=== PATIENT | male | born 1935 | race Caucasian/White ===

== ENCOUNTER 2016-08-28 13:41 | Inpatient (IN) ==
[2016-08-28] MEDS ORDERED: ZALEPLON 5 MG CAPSULE PO PRN (14:56)
[2016-08-28] MEDS ORDERED: DOCUSATE SODIUM 100 MG CAPSULE PO PRN (14:56)
[2016-08-28] MEDS ORDERED: MAGNESIUM SULF RIDER 4 GM in PREMIX 1 EACH IV PRN (14:56)
[2016-08-28] MEDS ORDERED: ONDANSETRON 4 MG/2 ML VIAL IV PRN (14:56)
[2016-08-28] MEDS ORDERED: MAGNESIUM SULF RIDER 2 GM in PREMIX 1 EACH IV PRN (14:56)
[2016-08-28] MEDS ORDERED: ACETAMINOPHEN 325 MG TABLET PO PRN (14:56)
[2016-08-28] MEDS ORDERED: BISACODYL 5 MG TABLET PO PRN (14:56)
--- NOTE | 2016-08-28 18:59 | XRay Report ---
XR chest 1V portable Indication: Shortness of breath. Chest one view: Comparison 04/10/2016. Worsening pulmonary vascular congestion is present with increased prominence of the hilar regions. Hazy obscuration of the lung bases is noted as well, likely atelectasis. Heart size is upper limits normal and a pacemaker is again shown. Aortic tortuosity is stable. Impression: CHF with pulmonary edema as described. Bibasilar atelectasis. PROCEDURE INTERPRETED AT [facility] DEPARTMENT OF RADIOLOGY Final Report Signed by: Good John M.D.
[2016-08-28 19:03] LABS: Basophils % 0.4 % (0.0-0.8); Eosinophils % 0.5 % (0.00-10.9); Hematocrit 36.4 VOL% (42.0-52.0); Hemoglobin 11.6 GM/DL (14.0-18.0); Immature Granulocytes % 0.9 %; Immature Granulocytes Absolute 0.07 #; Lymphocytes # 1.3 10*3/uL (1.4-4.0); Lymphocytes % 17.7 % (21.2-54.2); Mean Corpuscular HGB Conc 31.9 GM/DL (32-36); Mean Corpuscular Hemoglobin 27 PG (27-34); Mean Corpuscular Volume 84.8 FL (87-102); Mean Platelet Volume 9.8 FL (9.6-12.0); Monocytes # 0.6 10*3/uL (0.11-0.8); Monocytes % 7.7 % (1.7-12.7); Neutrophils # 5.5 10*3/uL (1.4-7.4); Neutrophils % 72.8 % (38.7-73.9); Platelet Count 248 T/CUMM (130-400); Red Blood Count 4.29 MC/CUMM (3.8-5.5); Red Cell Distribution Width 15.3 % (9.3-17.3); White Blood Count 7.5 T/CUMM (4-12)
--- NOTE | 2016-08-28 19:15 | Cardiology History & Physical ---
Assessment and Plan (1) Diastolic dysfunction Status: Acute Assessment and plan: 81-year-old man, presenting with volume overload, CHF exacerbation. Known mild mitral and aortic stenosis, dual-chamber pacemaker for complete heart block, nonobstructive CAD, hypertension, debility, BPH, OA, obesity. -He responded well to diuretics at [facility], [place], [facility]. Follow-up labs, he is still volume overloaded. We will continue diuresis with IV Lasix as allowed by renal function and blood pressure. He is adequately perfused on exam. -Repeat echo. 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 -Will need to readdress the severity of the valvular disease this was mild to moderate last year, but he had worsening CHF symptoms recently. -Interrogate pacemaker. He had ectopic atrial rhythm, and atrial pacing, with suspected very low AF burden in the past. He was not anticoagulated. -The Alberto was discontinued earlier, which he wore for several months. History of severe BPH. Monitor urine output closely. -I doubt pneumonia. Monitor closely for sepsis -DVT ppx Current Visit: No (2) Obesity (BMI 30.0-34.9) Status: Acute Current Visit: No (3) Acute on chronic diastolic CHF (congestive heart failure) Status: Chronic Current Visit: No (4) Aortic stenosis Status: Chronic Current Visit: No Qualifiers: Cardiac valve disease etiology: nonrheumatic Qualified Code(s): I35.0 - Nonrheumatic aortic (valve) stenosis (5) Benign prostatic hypertrophy with urinary retention Status: Chronic Current Visit: No (6) Chronic renal disease Status: Chronic Current Visit: No Qualifiers: Chronic kidney disease stage: stage 1 Qualified Code(s): N18.1 - Chronic kidney disease, stage 1 (7) Hypertension Status: Chronic Current Visit: No Qualifiers: Hypertension type: essential hypertension (8) Orthostatic hypotension Status: Chronic Current Visit: No (9) Pacemaker Status: Chronic Current Visit: No (10) Pseudomonas urinary tract infection Status: Chronic Current Visit: No (11) Shortness of breath Status: Chronic Current Visit: No (12) Third degree AV block Status: Chronic Current Visit: No History of Present Illness Chief complaint: CHF, SOB History of present illness: Mr. Aguilar is a 81 year old male, followed by dr. Coello. He actually sees the [facility] in [place], and had not seen Dr. Coello in a while. Follow-up was planned in September. He was hospitalized in March and April last year due to CHF. Echo at that time confirmed mild to moderate mitral stenosis, mild aortic stenosis, preserved left ventricular ejection fraction. Cardiology follow-up was planned , which was done not pursued. He also had a history of BPH, for Alberto for several months which was since removed. Per his , who is the main historian for his mildly demented , he is urinating fine since. He also has a dual-chamber pacemaker for complete heart block, and had episodes of slow atrial tachyarrhythmia in the past. There was no atrial fibrillation and he is not anticoagulated. He noticed progressive shortness of breath nocturnal dyspnea and lower extremity swelling for the past several weeks, was hospitalized at [facility] and per the 's request, he was transferred to us. There was also concern of pneumonia, but he denies any fever. He had cough which was mildly productive. Labs from [facility], [place], [facility] show normal cell count, creatinine 1.0, potassium 3.1. Elevated BNP, EKG shows atrial paced rhythm, with a bout of atrial rhythm, around 90 bpm, tracked to the ventricle. He was diuresed at [facility], [place], [facility] and he is already feeling better. Also has a history of musculoskeletal pain. BPH, hypertension, nonobstructive CAD. Home Medications Medication Instructions Recorded Confirmed Type Aspirin [Ecotrin] 81 mg PO DAILY 08/14/15 08/28/16 History Benzonatate 200 mg PO TID 08/14/15 08/28/16 History Tamsulosin [Flomax] 0.4 mg PO BID capsule 08/22/15 08/28/16 Rx Docusate Sodium 100 mg PO BID 03/28/16 08/28/16 History Dutasteride [Avodart] 0.5 mg PO QAM 03/28/16 08/28/16 History Furosemide Tab [Lasix Tab] 20 - 40 mg PO DAILY 03/28/16 08/28/16 History Hydrocodone/Acetaminophen 1 each PO Q4H PRN 03/28/16 08/28/16 History [Hydrocodon-Acetaminoph 7.5-325] Omeprazole Magnesium [Prilosec Otc] 20 mg PO BID 03/28/16 08/28/16 History Polyethylene Glycol Powder 17 gm PO DAILY PRN 03/28/16 08/28/16 History [Miralax] Tramadol HCl [Tramadol Tab] 50 mg PO TID PRN 03/28/16 08/28/16 History Zaleplon [Sonata] 10 mg PO BEDTIME 03/28/16 08/28/16 History Fludrocortisone [Florinef] 0.1 mg PO BID #60 tablet 04/14/16 08/28/16 Rx Metoprolol Tartrate Tab [Lopressor 25 mg PO BID #60 tablet 04/14/16 08/28/16 Rx Tab] guaiFENesin/DM LIQUID [Robitussin 10 ml PO Q6H PRN 04/14/16 08/28/16 History Dm] Clarithromycin [Biaxin] 500 mg PO BID 08/28/16 08/28/16 History Cyanocobalamin (Vitamin B-12) 1,000 mcg PO DAILY 08/28/16 08/28/16 History [Vitamin B-12] Folic Acid Tab 1 mg PO DAILY 08/28/16 08/28/16 History Sertraline [Zoloft] 50 mg PO DAILY 08/28/16 08/28/16 History Allergies Allergy/AdvReac Type Severity Reaction Status Date / Time ceftriaxone [From Rocephin] Allergy RASH Verified 08/14/15 03:08 ciprofloxacin [From Cipro] Allergy RASH Verified 08/14/15 03:08 clonazepam [From Klonopin] Allergy Hallucinati Verified 08/14/15 03:08 ng latex Allergy Verified 08/14/15 10:46 mirtazapine [From Remeron] Allergy RASH Verified 08/14/15 03:08 nitrofurantoin AdvReac Severe SHORTNESS Verified 03/29/16 06:22 [From Macrobid] OF BREATH lorazepam [From Ativan] AdvReac Irritable Verified 08/14/15 03:08 sulfamethoxazole AdvReac RASH Verified 03/29/16 09:58 [From Bactrim] trimethoprim [From Bactrim] AdvReac RASH Verified 03/29/16 09:58 Zolpidem [From Ambien] AdvReac Irritable Verified 08/14/15 03:08 ROS unobtainable: due to dementia 12 point system: reviewed and no additional remarkable complaints except as stated Medical,Surgical,& Family Hx - Medical History Cardio: History of: Cardiac Dysrhythmia, CHF, CAD, Hypertension, Pacemaker (2011 ), Cardiovascular Problems (CAD) No history of: Cerebrovascular Disease, Congenital Heart Disease, PVD, Valvular Heart Disease Psychological: No history of: Anxiety Disorders, ADHD, Behavior Problems, Bipolar Disorder, Depression, Previous Suicide Attempt, Psychiatric/Substance Abuse Tx, Schizophrenia, Violent Behavior, Psychiatric Problems HEENT: History of: Eye Problem No history of: Dental Problems (implants), Glaucoma, Oral Cancer Comment Only: Ear Problem (yurok), HEENT Problems (reports trouble swallowing x week ( per )) Endocrine: No history of: Dyslipidemia, Thyroid Disorder, Endocrine Cancer, Endocrine Problems Rheumatology: History of;: Rheumatological Problems (osteoarthrits knees) No history of;: Fibromyalgia, Myasthenia Gravis, Rheumatoid Arthritis, Systemic Lupus Erythematosus Respiratory: History of: Obstructive Sleep Apnea, Respiratory Problems ( reported that pt gets sob @ home but no hx copd, emphsema) Renal: History of: Renal Failure, Renal Problems No history of: Renal (Kidney) Cancer, Dialysis Genitourinary: History of: Bladder Problem, Prostate Problems, Recurring Urinary Tract Infections, Problems (hx nephritis @ 17 yrs old) No history of: Kidney Stones, Genitourinary Cancer Gastrointestinal: History of: GERD, GI Problems No history of: Gastrointestinal Bleed, Hemorrhoids, Hematochezia, Hepatitis, Liver Problems, Pancreatitis, Polyps, Ulcerative Colitis, Gastrointestinal Cancer Musculoskeletal: History of: Back/Neck Problems, Musculoskeletal Problems No history of: Degenerative Disk Disease, Herniated Disk, Osteoporosis, Musculoskeletal Cancer Hematology: No history of: Anemia, Blood Transfusion Reaction, Bleeding Problems, Clotting Problems, Sickle Cell Disease, Hematologic Cancer, Blood Disorders Other: History of: Miscellaneous Medical Problems No history of: Anesthesia Reactions, Anaphylaxis, Cancer, HIV, Malignant Hyperthermia, MRSA, Skin Problems - Surgical History Cardiac Surgeries: Sugical HX of: Cardiac Catheterization (2010), Cardiac Surgery (Pacemaker) Patient Denies: Femoral-Popliteal Bypass Graft, Carotid Endarterectomy, Internal Defibrillator, Vascular Access Devices Thoracic Surgeries: Patient denies;: Kidney (Renal Surgery), Lithotripsy, Nephrectomy, Organ Transplant, Lobectomy Neurologic Surgeries: Patient denies: Neurologic Surgery HEENT Surgeries: Surgical HX of: Tonsilectomy & Adenoidectomy Patient denies: Carotid Endarterectomy, Eye Surgery, Thyroid Surgery Abdominal Surgeries: Patient denies: Abdominal Surgery, Appendectomy, Cholecystectomy, Colonoscopy , Gastric Bypass Surgery, EGD, Splenectomy Comment Only: Hernia Repair (has hiatal hernia) Reproductive Surgeries: Surgical HX of;: Cystoscopy Patient denies;: Genitourinary Surgery, Prostate Surgery Orthopedic Surgeries: Surgical HX of;: Implanted Devices, Orthopedic Surgery ( collar bone) - Family History Family History: Reports;: Family Hypertension Denies;: Family Anesthesia Reaction, Family Stroke - Social History Smoking Status: Never smoker Frequency of Alcohol Use: None Type of Drug Use: None Cardiology Physical Exam - Constitutional Vitals: Vital Signs Temp Pulse Resp BP Pulse Ox 98.4 F 58 L 20 149/79 93 L 08/28/16 17:51 08/28/16 17:51 08/28/16 18:00 08/28/16 17:51 08/28/16 17:51 Intake and Output 08/28/16 08/28/16 08/28/16 07:59 15:59 23:59 Other: Weight 106.549 kg Patient Weight 08/28/16 23:59 Weight 106.549 kg General appearance: over weight - Head Head exam: Present: normal inspection, normocephalic. Absent: hematoma - Eye Eye exam: Absent: conjunctival injection Pupils: Absent: dilated - ENT ENT exam: Present: normal external ear exam - Neck Neck exam: Present: normal inspection, other (elev jvp) - Respiratory Respiratory exam: Present: decreased breath sounds. Absent: accessory muscle use, prolonged expiratory phase, wheezes - Cardiovascular Cardiovascular exam: Present: regular rate and rhythm, systolic murmur - GI/Abdominal GI/Abdominal exam: Present: normal bowel sounds. Absent: distended - Extremities Exam Extremities exam: Present: normal inspection, normal capillary refill, edema (2+ ) - Back Exam Back exam: Present: normal inspection - Neurological Exam Neurological exam: Present: alert, other ([place]) - Psychiatric Psychiatric exam: Present: normal affect, normal mood - Skin Skin exam: Present: normal color, warm. Absent: cyanosis Result/EKG - Labs CBC & BMP: 08/28/16 18:55 Lab Results: I have reviewed the past 24 hour labs Labs: Laboratory Results - last 24 hr 08/28/16 18:55 WBC 7.5 RBC 4.29 Hgb 11.6 L Hct 36.4 L MCV 84.8 L MCH 27 MCHC 31.9 L RDW 15.3 Plt Count 248 MPV 9.8 Neut % (Auto) 72.8 Lymph % (Auto) 17.7 L [place] % (Auto) 7.7 Eos % (Auto) 0.5 Baso % (Auto) 0.4 Neut # (Auto) 5.5 Lymph # (Auto) 1.3 L [place] # (Auto) 0.6 Eos # (Auto) 0.0 Baso # (Auto) 0.0 Immature Gran % 0.9 Nucleated RBC % 0.0 Immature Gran # 0.07 Nucleated RBCs # 0.00 - EKG EKG results: interpreted by me
[2016-08-28 19:36] LABS: Calcium 8.1 MG/DL (8.5-10.1); Magnesium 1.8 MG/DL (1.8-2.4); Osmolality,Calculated 283.3 MOS/KG (273-304); Potassium 2.8 MMOL/L (3.5-5.1)
[2016-08-28 19:39] LABS: Troponin I Only 0.025 NG/ML (0.00-0.045)
[2016-08-28] MEDS ORDERED: POTASSIUM CHLORIDE 20 MEQ TABLET PO ONE (19:45)
[2016-08-28] MEDS ORDERED: POLYETHYLENE GLYCOL POWDER 17 GM PACK PO PRN (19:46)
[2016-08-28] MEDS ORDERED: traMADol 50 MG TABLET PO PRN (19:46)
[2016-08-28] MEDS ORDERED: NON-FORMULARY MEDICATION (Omeprazole Magnesium [Prilosec Otc] 20 MG) PO SCH (21:00)
[2016-08-28] MEDS: BENZONATATE 100 MG CAPSULE PO SCH (21:20)
[2016-08-28] MEDS: TAMSULOSIN 0.4 MG CAPSULE PO SCH (21:21)
[2016-08-28] MEDS: MAGNESIUM OXIDE 400 MG TABLET PO SCH (21:21)
[2016-08-28] MEDS: FLUDROCORTISONE 0.1 MG TABLET PO SCH (21:21)
[2016-08-28] MEDS: METOPROLOL TARTRATE 25 MG TABLET PO SCH (21:21)
[2016-08-28] MEDS: ENOXAPARIN 30 MG/0.3 ML SYRINGE SUBCUT SCH (21:23)
[2016-08-28] MEDS: DOCUSATE SODIUM 100 MG CAPSULE PO SCH (21:27)
[2016-08-28] MEDS: ZALEPLON 5 MG CAPSULE PO SCH (21:27)
[2016-08-29 00:07] LABS: Troponin I Only 0.036 NG/ML (0.00-0.045)
[2016-08-29 04:27] LABS: Basophils % 0.6 % (0.0-0.8); Eosinophils # 0.1 10*3/uL (0.0-0.87); Eosinophils % 0.9 % (0.00-10.9); Hematocrit 33.4 VOL% (42.0-52.0); Hemoglobin 10.8 GM/DL (14.0-18.0); Immature Granulocytes % 1.1 %; Immature Granulocytes Absolute 0.06 #; Lymphocytes # 1.5 10*3/uL (1.4-4.0); Lymphocytes % 28.1 % (21.2-54.2); Mean Corpuscular HGB Conc 32.3 GM/DL (32-36); Mean Corpuscular Hemoglobin 27 PG (27-34); Mean Corpuscular Volume 84.3 FL (87-102); Mean Platelet Volume 10.2 FL (9.6-12.0); Monocytes # 0.6 10*3/uL (0.11-0.8); Monocytes % 10.6 % (1.7-12.7); Neutrophils # 3.1 10*3/uL (1.4-7.4); Neutrophils % 58.7 % (38.7-73.9); Platelet Count 248 T/CUMM (130-400); Red Blood Count 3.96 MC/CUMM (3.8-5.5); Red Cell Distribution Width 15.4 % (9.3-17.3); White Blood Count 5.3 T/CUMM (4-12)
[2016-08-29 05:00] LABS: % Iron Saturation 15.8 % (18-50)
[2016-08-29 05:08] LABS: Folate > 24.0 NG/ML (5.4-24.0); Vitamin B12 738 PG/ML (211-911)
--- NOTE | 2016-08-29 07:46 | XRay Report ---
XR chest 1V portable Indication: Shortness of breath. Chest one view: Since yesterday, slight decrease in interstitial prominence of the lungs noted with improved delineation of the diaphragm bilaterally. No new infiltrates are shown. Mild cardiomegaly and pacemaker device appears stable. Impression: Improved aeration of the lungs, likely from improved fluid overload. PROCEDURE INTERPRETED AT [facility] DEPARTMENT OF RADIOLOGY Final Report Signed by: Good John M.D.
--- NOTE | 2016-08-29 08:06 | EKG Report ---
Stationary ECG Study [facility] Test Date: 08/29/2016 8:06:24 AM Pat Name: MICHI SCOTT Department: Room: 289 Gender: M Hotel Maintenance Engineer: ARISTIDES : 1935 Requested by: Katia Villatoro Order Number: [id number] Saima MD: BETTYE FRAGA Intervals [place] Rate: 78 P: 83 NE: 218 QRS: 270 QRSD: 162 T: 73 QT: 477 QTc: 510 Interpretive Statements ELECTRONIC VENTRICULAR PACEMAKER ATRIAL PACING Electronically Signed On 08-31-16 16:31:18 CDT by BETTYE FRAGA [email or web address]
[2016-08-29 08:12] LABS: Troponin I Only 0.042 NG/ML (0.00-0.045)
[2016-08-29] MEDS: FUROSEMIDE 40 MG/4 ML VIAL IV SCH ×2 (09:15→15:36)
[2016-08-29] MEDS: BENZONATATE 100 MG CAPSULE PO SCH ×3 (09:16→21:44)
[2016-08-29] MEDS: FLUDROCORTISONE 0.1 MG TABLET PO SCH ×2 (09:16→21:44)
[2016-08-29] MEDS: CYANOCOBALAMIN 500 MCG TABLET PO SCH (09:16)
[2016-08-29] MEDS: MAGNESIUM OXIDE 400 MG TABLET PO SCH ×2 (09:16→21:42)
[2016-08-29] MEDS: FOLIC ACID 1 MG TABLET PO SCH (09:17)
[2016-08-29] MEDS: DUTASTERIDE 0.5 MG CAPSULE PO SCH (09:17)
[2016-08-29] MEDS: SERTRALINE 50 MG TABLET PO SCH (09:17)
[2016-08-29] MEDS: METOPROLOL TARTRATE 25 MG TABLET PO SCH ×2 (09:17→21:44)
[2016-08-29] MEDS: ASPIRIN EC 81 MG TABLET PO SCH (09:17)
[2016-08-29] MEDS: DOCUSATE SODIUM 100 MG CAPSULE PO SCH ×2 (09:17→21:44)
[2016-08-29] MEDS: TAMSULOSIN 0.4 MG CAPSULE PO SCH ×2 (09:17→21:42)
[2016-08-29] MEDS: POTASSIUM CHLORIDE 20 MEQ TABLET PO SCH ×2 (09:17→21:42)
[2016-08-29] MEDS: PANTOPRAZOLE 40 MG TABLET PO SCH (09:18)
[2016-08-29 12:50] LABS: Calcium 8.4 MG/DL (8.5-10.1); Magnesium 1.8 MG/DL (1.8-2.4); Osmolality,Calculated 284.1 MOS/KG (273-304)
--- NOTE | 2016-08-29 12:54 | ECHO Report ---
Solo Aguilar Exam Date: 08/29/2016 08:57 Referring Physician: Technologist: Bernice Hobson RDCS Age: 81 Ht (in): 73 Wt (lb): 234 Gender: M Exam Location: [facility] Echo Indications: Acute on chronic diastolic (congestive) heart failure, Chronic kidney disease, stage 1, Shortness of breath, Essential (primary) hypertension, Presence of cardiac pacemaker, CAD, Volume overload BP: 128 / 80 HR: 92 Rhythm: Pacemaker Technical Quality: IMPRESSIONS Normal left ventricular cavity size. Mild concentric hypertrophy. Left ventricular ejection fraction is estimated at 60 %. Moderately dilated right ventricle, with normal systolic function. Moderate pulmonary hypertension. Severe right atrial and moderate left atrial enlargement. Mitral valve sclerosis, with mild stenosis, mild regurgitation. Aortic valve sclerosis, with mild stenosis, without insufficiency. Compared to the prior transthoracic study from March 2016, no significant change in the severity of valvular disease. The pulmonary pressure was 36 mmHg then. MEASUREMENTS (Male / Female) Normal Values 2D ECHO LV Diastolic Diameter PLAX 3.7 cm 4.2 - 5.9 / 3.9 - 5.3 cm LV Systolic Diameter PLAX 2.3 cm LV Fractional Shortening PLAX 37.1 % IVS Diastolic Thickness 1.0 cm 0.6 - 1.0 / 0.6 - 0.9 cm LVPW Diastolic Thickness 1.0 cm 0.6 - 1.0 / 0.6 - 0.9 cm RV Internal Dim ED PLAX 3.8 cm Aortic Root Diameter 3.5 cm LA Systolic Diameter LX 5.4 cm 3.0 - 4.0 / 2.7 - 3.8 cm DOPPLER TR Peak Velocity 347.0 cm/s TR Peak Gradient 48.2 mmHg FINDINGS Left Ventricle Normal left ventricular cavity size. Mild concentric hypertrophy. Left ventricular ejection fraction is estimated at 60 %. Unable to estimate diastolic function due to severity of the velvular disease. Right Ventricle Moderately dilated right ventricle, with normal systolic function. Pacemaker wire visualized in the right ventricle. Right Atrium Severely increased right atrial size. Pacemaker wire in the right atrial cavity. Left Atrium Moderately increased left atrial size. Mitral Valve Severely sclerotic mitral valve. Diastolic gradient peak 9, mean 4 mmHg. Pressure half time 113 ms, calculated valve area 1.9 cm. Mild mitral regurgitation. Aortic Valve Sclerotic aortic valve, with systolic gradient of peak 77, mean 19 mmHg. Calculated valve area 1.3 cm. No insufficiency. Tricuspid Valve Morphologically normal tricuspid valve. Moderate tricuspid valve regurgitation. Tricuspid regurgitation velocities suggest a PAP of 58 mmHg. Pulmonic Valve Morphologically normal pulmonic valve without significant stenosis. There is no pulmonic regurgitation. Pericardium Normal pericardium without effusion. Aorta Normal ascending aorta dimension. Shane Muller (Electronically Signed) Final Date: 29 August 2016 12:53
--- NOTE | 2016-08-29 13:00 | Cardiology Progress Note ---
Assessment and Plan (1) Diastolic dysfunction Status: Acute Assessment and plan: 81-year-old man, presenting with volume overload, CHF exacerbation. Known mild mitral and aortic stenosis, dual-chamber pacemaker for complete heart block, nonobstructive CAD, hypertension, debility, BPH, OA, obesity. -Follow-up electrolytes. He was hypokalemic after he was diuresed vigorously at [facility], getting repletion. Confirmed with the physical laboratory assistant, the blood was drawn and they are still processing it, it is delayed for several hours now. -Continue IV Lasix, electrolyte repletion. -He is volume overloaded, echo shows stable, mild mitral and aortic valve disease. Pulmonary hypertension. -Intermittent atrial undersensing, arrhythmia may have contributed to heart failure exacerbation. DDD PM. The atrial signal is very low but there seems to be adequate sensing at 0.15 mV, the lowest setting. Continue to monitor telemetry. Arrhythmia, device dysfunction may have contributed to CHF exacerbation. -Anemia, iron deficiency. Start iron supplementation, vitamins, check stool guaiacs. He will need GI evaluation. He has valvular heart disease, at risk for AVMs. -The Alberto was discontinued earlier, which he wore for several months. History of severe BPH. Monitor urine output closely. He is using urinal. -DVT ppx -Keep on telemetry Current Visit: No (2) Obesity (BMI 30.0-34.9) Status: Acute Current Visit: No (3) Acute on chronic diastolic CHF (congestive heart failure) Status: Chronic Current Visit: No (4) Aortic stenosis Status: Chronic Current Visit: No Qualifiers: Cardiac valve disease etiology: nonrheumatic Qualified Code(s): I35.0 - Nonrheumatic aortic (valve) stenosis (5) Benign prostatic hypertrophy with urinary retention Status: Chronic Current Visit: No (6) Chronic renal disease Status: Chronic Current Visit: No Qualifiers: Chronic kidney disease stage: stage 1 Qualified Code(s): N18.1 - Chronic kidney disease, stage 1 (7) Hypertension Status: Chronic Current Visit: No Qualifiers: Hypertension type: essential hypertension (8) Orthostatic hypotension Status: Chronic Current Visit: No (9) Pacemaker Status: Chronic Current Visit: No (10) Pseudomonas urinary tract infection Status: Chronic Current Visit: No (11) Shortness of breath Status: Chronic Current Visit: No (12) Third degree AV block Status: Chronic Current Visit: No Cardiology - PN: Subj Interval history: He is feeling slightly better. BMP/magnesium from this morning is not available. I confirmed with the lab, it was drawn and is pending. Pacemaker interrogation shows atrial undersensing. Exam (Progress Note) - Constitutional Vitals: Period Temp Pulse Resp BP Sys/Martinez Pulse Ox Last 24 Hr 98 F-98.4 F 58-75 18-22 114-149/62-80 90-96 General appearance: no acute distress, over weight - Head Head exam: Present: normal inspection - Eye Eye exam: Absent: conjunctival injection Pupils: Absent: dilated - ENT ENT exam: Present: normal external ear exam - Neck Neck exam: Present: normal inspection, other (Elevated JVP.) - Respiratory Respiratory exam: Present: decreased breath sounds. Absent: prolonged expiratory phase - Cardiovascular Cardiovascular exam: Present: diastolic murmur, irregular rhythm, systolic murmur - GI/Abdominal GI/Abdominal exam: Present: normal bowel sounds, distended. Absent: ascites, guarding - Extremities Exam Extremities exam: Present: normal inspection, normal capillary refill, edema (2+ ) - Neurological Exam Neurological exam: Present: alert, oriented X3 - Psychiatric Psychiatric exam: Present: normal affect, normal mood - Skin Skin exam: Present: normal color, warm. Absent: cyanosis Result/EKG - Labs CBC & BMP: 08/29/16 03:43 08/29/16 03:42 Lab Results: I have reviewed the past 24 hour labs Labs: Laboratory Results - last 24 hr 08/28/16 08/28/16 08/28/16 18:55 18:55 18:55 WBC 7.5 RBC 4.29 Hgb 11.6 L Hct 36.4 L MCV 84.8 L MCH 27 MCHC 31.9 L RDW 15.3 Plt Count 248 MPV 9.8 Neut % (Auto) 72.8 Lymph % (Auto) 17.7 L [place] % (Auto) 7.7 Eos % (Auto) 0.5 Baso % (Auto) 0.4 Neut # (Auto) 5.5 Lymph # (Auto) 1.3 L [place] # (Auto) 0.6 Eos # (Auto) 0.0 Baso # (Auto) 0.0 Immature Gran % 0.9 Nucleated RBC % 0.0 Immature Gran # 0.07 Nucleated RBCs # 0.00 Absolute Retic Percent Retic Retic Hgb Equivalent Sodium 141 Potassium 2.8 L Chloride 96 L Carbon Dioxide 37 H Anion Gap 10.8 BUN 18 Creatinine 1.10 GFR Calculation 83 BUN/Creatinine Ratio 16.00 Glucose 119 H Calculated Osmolality 283.3 Calcium 8.1 L Magnesium 1.8 Iron TIBC % Saturation Ferritin Total Creatine Kinase CK-MB (CK-2) Troponin I B-Natriuretic Peptide 807 H Vitamin B12 Folate 08/28/16 08/28/16 08/29/16 18:55 23:22 03:42 WBC RBC Hgb Hct MCV MCH MCHC RDW Plt Count MPV Neut % (Auto) Lymph % (Auto) [place] % (Auto) Eos % (Auto) Baso % (Auto) Neut # (Auto) Lymph # (Auto) [place] # (Auto) Eos # (Auto) Baso # (Auto) Immature Gran % Nucleated RBC % Immature Gran # Nucleated RBCs # Absolute Retic Percent Retic Retic Hgb Equivalent Sodium 142 Potassium 3.0 L Chloride 98 Carbon Dioxide 38 H Anion Gap 9.0 BUN 18 Creatinine 1.10 GFR Calculation 83 BUN/Creatinine Ratio 16.00 Glucose 92 Calculated Osmolality 284.1 Calcium 8.4 L Magnesium 1.8 Iron TIBC % Saturation Ferritin Total Creatine Kinase 95 87 CK-MB (CK-2) < 1.0 < 1.0 Troponin I 0.025 0.036 B-Natriuretic Peptide Vitamin B12 Folate 08/29/16 08/29/16 08/29/16 03:43 03:43 03:43 WBC 5.3 RBC 3.96 Hgb 10.8 L Hct 33.4 L MCV 84.3 L MCH 27 MCHC 32.3 RDW 15.4 Plt Count 248 MPV 10.2 Neut % (Auto) 58.7 Lymph % (Auto) 28.1 [place] % (Auto) 10.6 Eos % (Auto) 0.9 Baso % (Auto) 0.6 Neut # (Auto) 3.1 Lymph # (Auto) 1.5 [place] # (Auto) 0.6 Eos # (Auto) 0.1 Baso # (Auto) 0.0 Immature Gran % 1.1 Nucleated RBC % 0.0 Immature Gran # 0.06 Nucleated RBCs # 0.00 Absolute Retic 0.1 Percent Retic 2.0 H Retic Hgb Equivalent 32.1 Sodium Potassium Chloride Carbon Dioxide Anion Gap BUN Creatinine GFR Calculation BUN/Creatinine Ratio Glucose Calculated Osmolality Calcium Magnesium Iron TIBC % Saturation Ferritin Total Creatine Kinase CK-MB (CK-2) Troponin I B-Natriuretic Peptide 904 H Vitamin B12 Folate 08/29/16 08/29/16 08/29/16 03:43 03:43 07:26 WBC RBC Hgb Hct MCV MCH MCHC RDW Plt Count MPV Neut % (Auto) Lymph % (Auto) [place] % (Auto) Eos % (Auto) Baso % (Auto) Neut # (Auto) Lymph # (Auto) [place] # (Auto) Eos # (Auto) Baso # (Auto) Immature Gran % Nucleated RBC % Immature Gran # Nucleated RBCs # Absolute Retic Percent Retic Retic Hgb Equivalent Sodium Potassium Chloride Carbon Dioxide Anion Gap BUN Creatinine GFR Calculation BUN/Creatinine Ratio Glucose Calculated Osmolality Calcium Magnesium Iron 36 L TIBC 228 L % Saturation 15.8 L Ferritin 695.0 H Total Creatine Kinase 68 D CK-MB (CK-2) < 1.0 Troponin I 0.042 B-Natriuretic Peptide Vitamin B12 738 Folate > 24.0 H - EKG EKG results: interpreted by me
[2016-08-29] MEDS: FERROUS SULFATE 325 MG TABLET PO SCH ×2 (15:36→21:44)
[2016-08-29] MEDS: ZALEPLON 5 MG CAPSULE PO SCH (21:45)
[2016-08-29] MEDS: ENOXAPARIN 30 MG/0.3 ML SYRINGE SUBCUT SCH (21:52)
[2016-08-30 05:04] LABS: Basophils % 0.7 % (0.0-0.8); Eosinophils # 0.1 10*3/uL (0.0-0.87); Eosinophils % 1.1 % (0.00-10.9); Hemoglobin 10.6 GM/DL (14.0-18.0); Immature Granulocytes % 0.7 %; Immature Granulocytes Absolute 0.04 #; Lymphocytes # 1.9 10*3/uL (1.4-4.0); Lymphocytes % 31.2 % (21.2-54.2); Mean Corpuscular HGB Conc 32.1 GM/DL (32-36); Mean Corpuscular Hemoglobin 27 PG (27-34); Mean Corpuscular Volume 84.6 FL (87-102); Mean Platelet Volume 9.7 FL (9.6-12.0); Monocytes # 0.6 10*3/uL (0.11-0.8); Monocytes % 9.3 % (1.7-12.7); Neutrophils # 3.5 10*3/uL (1.4-7.4); Platelet Count 223 T/CUMM (130-400); Red Cell Distribution Width 15.5 % (9.3-17.3); White Blood Count 6.2 T/CUMM (4-12)
[2016-08-30 05:38] LABS: Calcium 8.4 MG/DL (8.5-10.1); Magnesium 1.9 MG/DL (1.8-2.4); Osmolality,Calculated 283.3 MOS/KG (273-304); Potassium 3.5 MMOL/L (3.5-5.1)
[2016-08-30] MEDS: FUROSEMIDE 40 MG/4 ML VIAL IV SCH ×2 (09:27→16:14)
[2016-08-30] MEDS: ASPIRIN EC 81 MG TABLET PO SCH (09:34)
[2016-08-30] MEDS: MAGNESIUM OXIDE 400 MG TABLET PO SCH ×2 (09:34→21:10)
[2016-08-30] MEDS: FERROUS SULFATE 325 MG TABLET PO SCH ×3 (09:34→21:09)
[2016-08-30] MEDS: DUTASTERIDE 0.5 MG CAPSULE PO SCH (09:34)
[2016-08-30] MEDS: BENZONATATE 100 MG CAPSULE PO SCH ×3 (09:34→21:10)
[2016-08-30] MEDS: POTASSIUM CHLORIDE 20 MEQ TABLET PO SCH ×2 (09:35→21:10)
[2016-08-30] MEDS: CYANOCOBALAMIN 500 MCG TABLET PO SCH (09:35)
[2016-08-30] MEDS: PANTOPRAZOLE 40 MG TABLET PO SCH (09:35)
[2016-08-30] MEDS: FLUDROCORTISONE 0.1 MG TABLET PO SCH ×2 (09:35→21:09)
[2016-08-30] MEDS: DOCUSATE SODIUM 100 MG CAPSULE PO SCH ×2 (09:35→21:11)
[2016-08-30] MEDS: TAMSULOSIN 0.4 MG CAPSULE PO SCH ×2 (09:35→21:10)
[2016-08-30] MEDS: FOLIC ACID 1 MG TABLET PO SCH (09:35)
[2016-08-30] MEDS: METOPROLOL TARTRATE 25 MG TABLET PO SCH ×2 (09:35→21:10)
[2016-08-30] MEDS: SERTRALINE 50 MG TABLET PO SCH (09:36)
--- NOTE | 2016-08-30 13:18 | Cardiology Progress Note ---
Assessment and Plan (1) Diastolic dysfunction Status: Acute Assessment and plan: 81-year-old man, presenting with volume overload, CHF exacerbation. Known mild mitral and aortic stenosis, dual-chamber pacemaker for complete heart block, nonobstructive CAD, hypertension, debility, BPH, OA, obesity. -Continue IV Lasix today. Volume overload improving. May switch to p.o. tomorrow, if remains stable. -Continue electrolyte repletion. He was diuresed vigorously, before he was transferred to us. -Echo showed stable, mild mitral and aortic valve disease. Pulmonary hypertension. -Intermittent atrial undersensing, arrhythmia may have contributed to heart failure exacerbation. DDD PM. The atrial signal is very low but there seems to be adequate sensing at 0.15 mV, the lowest setting. Continue to monitor telemetry. Arrhythmia, device dysfunction may have contributed to CHF exacerbation. -Anemia, iron deficiency. Cont iron supplementation, vitamins, check stool guaiacs. He will need GI evaluation. He has valvular heart disease, at risk for AVMs. -The Alberto was discontinued earlier, which he wore for several months. History of severe BPH. Monitor urine output closely. He is using urinal. -DVT ppx - asked for transportation back to [facility], when stable. Will get social work -He will need regular cardiac follow-up. His bank messenger is dr. Coello. Patient has hard time with transportation. Current Visit: No (2) Obesity (BMI 30.0-34.9) Status: Acute Current Visit: No (3) Acute on chronic diastolic CHF (congestive heart failure) Status: Chronic Current Visit: No (4) Aortic stenosis Status: Chronic Current Visit: No Qualifiers: Cardiac valve disease etiology: nonrheumatic Qualified Code(s): I35.0 - Nonrheumatic aortic (valve) stenosis (5) Benign prostatic hypertrophy with urinary retention Status: Chronic Current Visit: No (6) Chronic renal disease Status: Chronic Current Visit: No Qualifiers: Chronic kidney disease stage: stage 1 Qualified Code(s): N18.1 - Chronic kidney disease, stage 1 (7) Hypertension Status: Chronic Current Visit: No Qualifiers: Hypertension type: essential hypertension (8) Orthostatic hypotension Status: Chronic Current Visit: No (9) Pacemaker Status: Chronic Current Visit: No (10) Pseudomonas urinary tract infection Status: Chronic Current Visit: No (11) Shortness of breath Status: Chronic Current Visit: No (12) Third degree AV block Status: Chronic Current Visit: No Cardiology - PN: Subj Interval history: He is feeling better. Diuresing well with IV Lasix. No recurrence of atrial undersensing, since pacer setting adjustment. Renal function stable. Valvular heart disease, unchanged since the prior echo Exam (Progress Note) - Constitutional Vitals: Period Temp Pulse Resp BP Sys/Martinez Pulse Ox Last 24 Hr 97.3 F-98.2 F 60-77 16-20 102-146/61-84 92-97 General appearance: normal weight, over weight - Head Head exam: Present: normal inspection, normocephalic - Eye Eye exam: Absent: conjunctival injection Pupils: Absent: dilated - ENT ENT exam: Present: normal external ear exam - Neck Neck exam: Present: normal inspection, other (Elevated JVP) - Respiratory Respiratory exam: Present: decreased breath sounds. Absent: prolonged expiratory phase, wheezes - Cardiovascular Cardiovascular exam: Present: diastolic murmur, regular rate and rhythm, systolic murmur - GI/Abdominal GI/Abdominal exam: Present: normal bowel sounds. Absent: ascites, distended - Extremities Exam Extremities exam: Present: normal inspection, normal capillary refill, edema (2+ ) - Neurological Exam Neurological exam: Present: alert, oriented X3 - Psychiatric Psychiatric exam: Present: normal affect, normal mood - Skin Skin exam: Present: normal color, warm. Absent: cyanosis Result/EKG - Labs CBC & BMP: 08/30/16 04:54 08/30/16 04:54 Lab Results: I have reviewed the past 24 hour labs Labs: Laboratory Results - last 24 hr 08/30/16 08/30/16 04:54 04:54 WBC 6.2 RBC 3.90 Hgb 10.6 L Hct 33.0 L MCV 84.6 L MCH 27 MCHC 32.1 RDW 15.5 Plt Count 223 MPV 9.7 Neut % (Auto) 57.0 Lymph % (Auto) 31.2 Garvin % (Auto) 9.3 Eos % (Auto) 1.1 Baso % (Auto) 0.7 Neut # (Auto) 3.5 Lymph # (Auto) 1.9 Garvin # (Auto) 0.6 Eos # (Auto) 0.1 Baso # (Auto) 0.0 Immature Gran % 0.7 Nucleated RBC % 0.0 Immature Gran # 0.04 Nucleated RBCs # 0.00 Sodium 141 Potassium 3.5 Chloride 97 L Carbon Dioxide 37 H Anion Gap 10.5 BUN 20 H Creatinine 1.10 GFR Calculation 83 BUN/Creatinine Ratio 18.00 Glucose 93 Calculated Osmolality 283.3 Calcium 8.4 L Magnesium 1.9 - EKG EKG results: interpreted by me
[2016-08-30] MEDS: ZALEPLON 5 MG CAPSULE PO SCH (21:11)
[2016-08-30] MEDS: ENOXAPARIN 40 MG/0.4 ML SYRINGE SUBCUT SCH (21:11)
[2016-08-31 04:47] LABS: Basophils % 0.6 % (0.0-0.8); Eosinophils # 0.1 10*3/uL (0.0-0.87); Eosinophils % 1.3 % (0.00-10.9); Hematocrit 33.3 VOL% (42.0-52.0); Hemoglobin 10.7 GM/DL (14.0-18.0); Immature Granulocytes % 0.5 %; Immature Granulocytes Absolute 0.03 #; Lymphocytes # 1.8 10*3/uL (1.4-4.0); Lymphocytes % 28.7 % (21.2-54.2); Mean Corpuscular HGB Conc 32.1 GM/DL (32-36); Mean Corpuscular Hemoglobin 27 PG (27-34); Mean Corpuscular Volume 84.5 FL (87-102); Monocytes # 0.7 10*3/uL (0.11-0.8); Monocytes % 10.5 % (1.7-12.7); Neutrophils # 3.6 10*3/uL (1.4-7.4); Neutrophils % 58.4 % (38.7-73.9); Platelet Count 234 T/CUMM (130-400); Red Blood Count 3.94 MC/CUMM (3.8-5.5); Red Cell Distribution Width 15.2 % (9.3-17.3); White Blood Count 6.2 T/CUMM (4-12)
[2016-08-31 05:10] LABS: Calcium 8.2 MG/DL (8.5-10.1); Osmolality,Calculated 281.4 MOS/KG (273-304); Potassium 3.8 MMOL/L (3.5-5.1)
[2016-08-31] MEDS: CYANOCOBALAMIN 500 MCG TABLET PO SCH (09:29)
[2016-08-31] MEDS: DUTASTERIDE 0.5 MG CAPSULE PO SCH (09:29)
[2016-08-31] MEDS: FOLIC ACID 1 MG TABLET PO SCH (09:29)
[2016-08-31] MEDS: ASPIRIN EC 81 MG TABLET PO SCH (09:29)
[2016-08-31] MEDS: FLUDROCORTISONE 0.1 MG TABLET PO SCH ×2 (09:29→21:31)
[2016-08-31] MEDS: FERROUS SULFATE 325 MG TABLET PO SCH ×3 (09:29→21:31)
[2016-08-31] MEDS: PANTOPRAZOLE 40 MG TABLET PO SCH (09:30)
[2016-08-31] MEDS: TAMSULOSIN 0.4 MG CAPSULE PO SCH ×2 (09:30→21:32)
[2016-08-31] MEDS: BENZONATATE 100 MG CAPSULE PO SCH ×3 (09:30→21:30)
[2016-08-31] MEDS: SERTRALINE 50 MG TABLET PO SCH (09:30)
[2016-08-31] MEDS: METOPROLOL TARTRATE 25 MG TABLET PO SCH (09:30)
[2016-08-31] MEDS: MAGNESIUM OXIDE 400 MG TABLET PO SCH ×2 (09:30→21:31)
[2016-08-31] MEDS: DOCUSATE SODIUM 100 MG CAPSULE PO SCH ×2 (09:30→21:54)
[2016-08-31] MEDS: POTASSIUM CHLORIDE 20 MEQ TABLET PO SCH ×2 (09:30→21:31)
[2016-08-31] MEDS ORDERED: FUROSEMIDE 40 MG TABLET PO SCH (10:23)
[2016-08-31] MEDS: FUROSEMIDE 40 MG/4 ML VIAL IV SCH (11:07)
--- NOTE | 2016-08-31 14:14 | Cardiology Progress Note ---
Cardiology - PN: Subj Interval history: Cardiology note 81-year-old man admitted with CHF [place] [facility] with several medical problems including pneumonia, heart failure, debilitating osteoarthritis with inability to walk and weakness. Has history of BPH and takes Flomax. They missed their appointment Dr. David Steiner and want to see Dr. Steiner during this admission. Telemetry shows sinus rhythm and pacing No ectopy O2 sat 94% on 2 L Blood pressure 132/80 Regular rhythm no gallop Decreased breath sounds but fairly clear Abdomen soft benign. Leg edema has resolved. Recent echo shows ejection fraction 60% with LVH, mildly dilated right ventricle , severely dilated right atrium, dilated left atrium, mild MR, severely sclerotic mitral valve, aortic sclerosis and severe TR PA pressure 58 Lab data White count 6.2 hemoglobin 10.7 hematocrit 33.3 Sodium 140 potassium 3.8 chloride 97 CO2 38 BUN 21 creatinine 1.10 Glucose 92 magnesium 2.0 Plan DC IV Lasix Begin Lasix 40 mg p.o. twice daily Increase metoprolol 50 mg twice daily Consult Dr. David Steiner Consult physical therapy Anticipate discharge back [place] [facility] Exam (Progress Note) - Constitutional Vitals: Period Temp Pulse Resp BP Sys/Martinez Pulse Ox Last 24 Hr 97.3 F-98.1 F 58-97 18-20 128-159/69-83 91-98 Result/EKG - Labs CBC & BMP: 08/31/16 03:54 08/31/16 03:54 Labs: Laboratory Results - last 24 hr 08/31/16 08/31/16 03:54 03:54 WBC 6.2 RBC 3.94 Hgb 10.7 L Hct 33.3 L MCV 84.5 L MCH 27 MCHC 32.1 RDW 15.2 Plt Count 234 MPV 10.0 Neut % (Auto) 58.4 Lymph % (Auto) 28.7 Greeley % (Auto) 10.5 Eos % (Auto) 1.3 Baso % (Auto) 0.6 Neut # (Auto) 3.6 Lymph # (Auto) 1.8 Greeley # (Auto) 0.7 Eos # (Auto) 0.1 Baso # (Auto) 0.0 Immature Gran % 0.5 Nucleated RBC % 0.0 Immature Gran # 0.03 Nucleated RBCs # 0.00 Sodium 140 Potassium 3.8 Chloride 97 L Carbon Dioxide 38 H Anion Gap 8.8 BUN 21 H Creatinine 1.10 GFR Calculation 84 BUN/Creatinine Ratio 19.00 Glucose 92 Calculated Osmolality 281.4 Calcium 8.2 L Magnesium 2.0
[2016-08-31] MEDS: FUROSEMIDE 40 MG TABLET PO SCH (15:58)
[2016-08-31] MEDS: ENOXAPARIN 40 MG/0.4 ML SYRINGE SUBCUT SCH (21:29)
[2016-08-31] MEDS: METOPROLOL TARTRATE 50 MG TABLET PO SCH (21:30)
[2016-08-31] MEDS: ZALEPLON 5 MG CAPSULE PO SCH (21:54)
[2016-09-01 04:43] LABS: Basophils % 0.4 % (0.0-0.8); Eosinophils # 0.1 10*3/uL (0.0-0.87); Eosinophils % 1.8 % (0.00-10.9); Hematocrit 36.1 VOL% (42.0-52.0); Immature Granulocytes % 0.4 %; Immature Granulocytes Absolute 0.03 #; Lymphocytes % 27.9 % (21.2-54.2); Mean Corpuscular HGB Conc 30.5 GM/DL (32-36); Mean Corpuscular Hemoglobin 27 PG (27-34); Mean Corpuscular Volume 87.8 FL (87-102); Mean Platelet Volume 9.9 FL (9.6-12.0); Monocytes # 0.7 10*3/uL (0.11-0.8); Monocytes % 9.2 % (1.7-12.7); Neutrophils # 4.2 10*3/uL (1.4-7.4); Neutrophils % 60.3 % (38.7-73.9); Platelet Count 235 T/CUMM (130-400); Red Blood Count 4.11 MC/CUMM (3.8-5.5); Red Cell Distribution Width 15.4 % (9.3-17.3); White Blood Count 7.1 T/CUMM (4-12)
[2016-09-01 05:18] LABS: Calcium 8.4 MG/DL (8.5-10.1); Magnesium 2.1 MG/DL (1.8-2.4); Osmolality,Calculated 283.3 MOS/KG (273-304); Potassium 4.1 MMOL/L (3.5-5.1)
[2016-09-01] MEDS: DUTASTERIDE 0.5 MG CAPSULE PO SCH (09:09)
[2016-09-01] MEDS: MAGNESIUM OXIDE 400 MG TABLET PO SCH ×2 (09:10→20:56)
[2016-09-01] MEDS: FLUDROCORTISONE 0.1 MG TABLET PO SCH ×2 (09:10→20:56)
[2016-09-01] MEDS: TAMSULOSIN 0.4 MG CAPSULE PO SCH ×2 (09:10→20:56)
[2016-09-01] MEDS: CYANOCOBALAMIN 500 MCG TABLET PO SCH (09:10)
--- NOTE | 2016-09-01 09:10 | Urology Consultation ---
Assessment and Plan - Time spent with patient Time spent with patient: Greater than 30 minutes (1) BPH (benign prostatic hypertrophy) with urinary obstruction Status: Acute Assessment and plan: Stable on medical therapy. He is on Flomax twice a day and Avodart. I have recommended they continue this indefinitely. We have a logistics issue with him getting to see me as [facility]. They will not transport to [place] only to [place]. But he is stable at this point on medical therapy. I recommend we continue that and I will see him back as needed. Current Visit: Yes History of Present Illness - Data of Consult Patient: known to practice within the last 3 years Consult date: 09/01/16 Requesting Physician: Shane Muller - Consult Narrative Reason for consult: BPH History of present illness: Mr. Aguilar is a 81 year old male who has BPH and voiding dysfunction with history of urinary retention. I saw him last March in the hospital. We finally got him on a regimen of Flomax twice a day and Avodart. He was voiding spontaneously. He has been in [facility] [place] [facility]. Apparently was in the hospital in [facility]. At one point his medicines got stopped and he has some difficulty and had to be cathed. But he is doing well now on Flomax twice a day and the Avodart. I have recommended to the and the patient that we do not stop these medications. That they need to be continued indefinitely. He had an appointment in the office and it had to be changed and then the was going to call back and never did. So apparently the [facility] in [place] [facility], does not transport to [place] but only transports to [place]. I told her than it is going to be difficult for me to see him. But at this point time he says he voids well. No urgency and no incontinence. Urinary flow is good with no hesitancy or nocturia. CC: Shane Muller MD - Home Medications and Allergies Home Medications: Home Medications Medication Instructions Recorded Confirmed Type Aspirin [Ecotrin] 81 mg PO DAILY 08/14/15 08/28/16 History Benzonatate 200 mg PO TID 08/14/15 08/28/16 History Tamsulosin [Flomax] 0.4 mg PO BID capsule 08/22/15 08/28/16 Rx Docusate Sodium 100 mg PO BID 03/28/16 08/28/16 History Dutasteride [Avodart] 0.5 mg PO QAM 03/28/16 08/28/16 History Furosemide Tab [Lasix Tab] 20 - 40 mg PO DAILY 03/28/16 08/28/16 History Hydrocodone/Acetaminophen 1 each PO Q4H PRN 03/28/16 08/28/16 History [Hydrocodon-Acetaminoph 7.5-325] Omeprazole Magnesium [Prilosec Otc] 20 mg PO BID 03/28/16 08/28/16 History Polyethylene Glycol Powder 17 gm PO DAILY PRN 03/28/16 08/28/16 History [Miralax] Tramadol HCl [Tramadol Tab] 50 mg PO TID PRN 03/28/16 08/28/16 History Zaleplon [Sonata] 10 mg PO BEDTIME 03/28/16 08/28/16 History Fludrocortisone [Florinef] 0.1 mg PO BID #60 tablet 04/14/16 08/28/16 Rx Metoprolol Tartrate Tab [Lopressor 25 mg PO BID #60 tablet 04/14/16 08/28/16 Rx Tab] guaiFENesin/DM LIQUID [Robitussin 10 ml PO Q6H PRN 04/14/16 08/28/16 History Dm] Clarithromycin [Biaxin] 500 mg PO BID 08/28/16 08/28/16 History Cyanocobalamin (Vitamin B-12) 1,000 mcg PO DAILY 08/28/16 08/28/16 History [Vitamin B-12] Folic Acid Tab 1 mg PO DAILY 08/28/16 08/28/16 History Sertraline [Zoloft] 50 mg PO DAILY 08/28/16 08/28/16 History Allergies/Adverse Reactions: Allergies Allergy/AdvReac Type Severity Reaction Status Date / Time ceftriaxone [From Rocephin] Allergy RASH Verified 08/14/15 03:08 ciprofloxacin [From Cipro] Allergy RASH Verified 08/14/15 03:08 clonazepam [From Klonopin] Allergy Hallucinati Verified 08/14/15 03:08 ng latex Allergy Verified 08/14/15 10:46 mirtazapine [From Remeron] Allergy RASH Verified 08/14/15 03:08 nitrofurantoin AdvReac Severe SHORTNESS Verified 03/29/16 06:22 [From Macrobid] OF BREATH lorazepam [From Ativan] AdvReac Irritable Verified 08/14/15 03:08 sulfamethoxazole AdvReac RASH Verified 03/29/16 09:58 [From Bactrim] trimethoprim [From Bactrim] AdvReac RASH Verified 03/29/16 09:58 Zolpidem [From Ambien] AdvReac Irritable Verified 08/14/15 03:08 12 point system: reviewed and no additional remarkable complaints except as stated - Genitourinary Genitourinary: Present: difficulty urinating (When he is off medicine), nocturia (When he is off medicine), urinary frequency (When he is off medicine) . Absent: dysuria, flank pain, hematuria, scrotal swelling, testicular mass, testicular pain Exam - Constitutional Vitals: Period Temp Pulse Resp BP Sys/Martinez Pulse Ox Last 24 Hr 97.6 F-98.2 F 61-97 16-20 101-130/68-80 94-96 - Genitourinary Genitourinary: scrotum without lesions, cysts, edema or rash, penis with no lesions or discharge, diffusely enlarged prostate without tenderness Results - Labs CBC & BMP: 09/01/16 04:20 09/01/16 04:20 Lab Results: I have reviewed the past 24 hour labs
[2016-09-01] MEDS: POTASSIUM CHLORIDE 20 MEQ TABLET PO SCH ×2 (09:11→20:55)
[2016-09-01] MEDS: DOCUSATE SODIUM 100 MG CAPSULE PO SCH ×3 (09:11→20:57)
[2016-09-01] MEDS: PANTOPRAZOLE 40 MG TABLET PO SCH (09:12)
[2016-09-01] MEDS: FOLIC ACID 1 MG TABLET PO SCH (09:12)
[2016-09-01] MEDS: SERTRALINE 50 MG TABLET PO SCH (09:13)
[2016-09-01] MEDS: METOPROLOL TARTRATE 50 MG TABLET PO SCH ×2 (09:13→20:55)
[2016-09-01] MEDS: ASPIRIN EC 81 MG TABLET PO SCH (09:13)
[2016-09-01] MEDS: BENZONATATE 100 MG CAPSULE PO SCH ×3 (09:13→20:55)
[2016-09-01] MEDS: FERROUS SULFATE 325 MG TABLET PO SCH ×3 (09:13→20:55)
[2016-09-01] MEDS: FUROSEMIDE 40 MG TABLET PO SCH ×2 (09:14→16:52)
--- NOTE | 2016-09-01 11:49 | Cardiology Progress Note ---
Cardiology - PN: Subj Interval history: Cardiology note 81-year-old man with congestive heart failure due to diastolic dysfunction. Has been diuresed and doing better. is very protective Telemetry shows steady sinus rhythm without ectopy or pauses Blood pressure 120/76 in the right arm by me. O2 sat 94% on 2 L. regular rhythm no murmur Decreased breath sounds but clear Abdomen soft benign No leg edema Lab data today White count 7.1 hemoglobin 11.0 hematocrit 36.1 Sodium 141 potassium 4.1 chloride 99 CO2 38 BUN 21 creatinine 1.10 Magnesium 2.1 glucose 93 Impression Diastolic congestive heart failure BPH on Flomax and Avodart Recent echo shows ejection fraction 60% with LVH, aortic valve sclerosis, dilated right ventricle, severe dilated right atrium, PA pressure 58mmHG. Plan Appreciate Dr. David Steiner assistance. Continue Flomax 0.4 mg twice daily and Avodart Physical therapy Continue Lasix daily Transfer back to [facility] tomorrow Exam (Progress Note) - Constitutional Vitals: Period Temp Pulse Resp BP Sys/Martinez Pulse Ox Last 24 Hr 97.6 F-98.2 F 61-97 16-20 101-130/68-80 94-96 Result/EKG - Labs CBC & BMP: 09/01/16 04:20 09/01/16 04:20 Labs: Laboratory Results - last 24 hr 08/29/16 09/01/16 09/01/16 03:43 04:20 04:20 WBC 7.1 RBC 4.11 Hgb 11.0 L Hct 36.1 L MCV 87.8 MCH 27 MCHC 30.5 L RDW 15.4 Plt Count 235 MPV 9.9 Neut % (Auto) 60.3 Lymph % (Auto) 27.9 Teller % (Auto) 9.2 Eos % (Auto) 1.8 Baso % (Auto) 0.4 Neut # (Auto) 4.2 Lymph # (Auto) 2.0 Teller # (Auto) 0.7 Eos # (Auto) 0.1 Baso # (Auto) 0.0 Immature Gran % 0.4 Nucleated RBC % 0.0 Immature Gran # 0.03 Nucleated RBCs # 0.00 Sodium 141 Potassium 4.1 Chloride 99 Carbon Dioxide 38 H Anion Gap 8.1 BUN 21 H Creatinine 1.10 GFR Calculation 83 BUN/Creatinine Ratio 19.00 Glucose 93 Calculated Osmolality 283.3 Calcium 8.4 L Magnesium 2.1 Transferrin 178 L
--- NOTE | 2016-09-01 16:49 | Discharge Summary ---
<Katia Quintana E - Last Filed: 09/02/16 08:40> Hospital Course - Hospital Course Hospital Course: [employer] DEVELOPER: DR. BRODERICK Patient was admitted August 28, 2016 for congestive heart failure. He had been in [facility] in [facility] and his requested transfer to our facility as Dr. Broderick is his soccer coach. He responded well to diuretics and continued with diuresis during the hospital stay, closely monitor his renal function and blood pressure. His pacemaker device was interrogated and found to have ectopic atrial rhythm, atrial pacing, with suspected very low A. fib burden in the past. He is not anticoagulated. Echocardiogram revealed EF 60%, stable mild mitral and aortic valve disease. Pulmonary hypertension. His iron deficiency anemia was started with oral iron supplementation. He may eventually need GI evaluation. He has valvular heart disease and is at risk for AVMs. His labs were stable while hospitalized here. Patient's IV Lasix was transitioned to oral Lasix as he had diuresed vigorously. Dr. David Steiner was consulted as the patient has severe BPH and they had missed their appointment. Apparently, they have quite difficulty with transportation and Dr. Steiner was kind enough to see the patient during hospital stay. Dr. Steiner recommended continuing his Flomax twice a day and Avodart. These medications will need to be continued indefinitely. Blood pressure was well controlled and medications were adjusted accordingly. Having felt him at maximal medical therapy, patient is being transferred to [facility] in stable condition. The had numerous questions regarding physical therapy, strict I &O, daily weights and labs. We will defer all of these questions to the attending at [facility] as we do not have privileges at that institution. Certainly, we recommend that the patient have as aggressive physical therapy as he can tolerate and we will defer to physical therapist. Recommend strict I&O and daily weights. Recommend monitoring his BMP routinely as he has had some changes to his potassium supplements. Recommend CBC being followed routinely as well. - Time spent with patient Time with patient DS: Greater than 30 minutes Diagnosis - Discharge Diagnosis (1) Diastolic dysfunction Status: Chronic (2) Obesity (BMI 30.0-34.9) Status: Chronic (3) Debility Status: Chronic (4) UTI (urinary tract infection) Status: Chronic (5) Chronic renal disease Status: Chronic (6) Pacemaker Status: Chronic (7) Diastolic heart failure Status: Chronic (8) Acute on chronic diastolic CHF (congestive heart failure) Status: Chronic Specialty Discharge - Follow Up or Referrals Follow up with: Tracy Broderick DO [Physician] - 10/08/16 1:10 pm (1 month - 6 weeks. ) Discharge Plan - Discharge Data Disposition: Swing Bed, Hos Based, [facility] Condition at Discharge: Stable Discharge Diet: heart healthy Activity: as per physical therapy Hygiene: no restrictions Weight Bearing at Discharge: other (Per physical therapy) Driving: not until seen by doctor Contact your physician if you experience:: fever over 101, Difficulty voiding, Redness or swelling, Nausea/Vomiting, Shortness of breath, Bleeding, pain uncontrolled by pain medications - Discharge Medications New Ferrous Sulfate Tab [Feosol Original Tab] 325 mg PO TID #90 tablet Furosemide Tab [Lasix Tab] 40 mg PO BID DIURETIC #60 tablet Magnesium Oxide 400 mg PO BID #60 tablet Potassium Chloride Cap/Tab [K Dur] 40 meq PO BID #60 tablet Continue Aspirin [Ecotrin] 81 mg PO DAILY Benzonatate 200 mg PO TID Tamsulosin [Flomax] 0.4 mg PO BID capsule Polyethylene Glycol Powder [Miralax] 17 gm PO DAILY PRN PRN Reason: Constipation Docusate Sodium 100 mg PO BID Hydrocodone/Acetaminophen [Hydrocodon-Acetaminoph 7.5-325] 1 each PO Q4H PRN PRN Reason: Pain Tramadol HCl [Tramadol Tab] 50 mg PO TID PRN PRN Reason: Pain Zaleplon [Sonata] 10 mg PO BEDTIME Dutasteride [Avodart] 0.5 mg PO QAM Omeprazole Magnesium [Prilosec Otc] 20 mg PO BID Fludrocortisone [Florinef] 0.1 mg PO BID #60 tablet Metoprolol Tartrate Tab [Lopressor Tab] 25 mg PO BID #60 tablet guaiFENesin/DM LIQUID [Robitussin Dm] 10 ml PO Q6H PRN PRN Reason: Cough Folic Acid Tab 1 mg PO DAILY Cyanocobalamin (Vitamin B-12) [Vitamin B-12] 1,000 mcg PO DAILY Sertraline [Zoloft] 50 mg PO DAILY Discontinued Furosemide Tab [Lasix Tab] 20 - 40 mg PO DAILY Clarithromycin [Biaxin] 500 mg PO BID - Follow Up or Referral Follow Up: Tracy Broderick DO [Physician] - 10/08/16 1:10 pm (1 month - 6 weeks. ) - Forms/Instructions Additional Discharge Instructions: Recommend BMP, Mg to be drawn Wednesday , September 04, 2016 at [facility] to be managed by Attending at [facility] Exam - Constitutional Vitals: Period Temp Pulse Resp BP Sys/Martinez Pulse Ox Last 24 Hr 96.5 F-97.6 F 60-69 16-20 100-122/59-90 92-100 Exam: General: [Appears well with no apparent distress.] [Pleasant and cooperative. ] [Appears comfortable.] HEENT: [PERRL, normocephalic, atraumatic. Mucous membranes moist. No jaundice noted. Conjunctiva moist and clear, sclerae anicteric] Neck: No obvious JVD/HJR, no thyromegaly or lymphadenopathy noted. Cardiac: [Regular rate and rhythm.] [Soft II/ GENEVA heard best at BUSB.] Lungs: [Clear to auscultation without accessory muscle use to assist the respiratory pattern.] Abdomen: Soft, bowel sounds normoactive. Nontender and nondistended. No abdominal bruit or thrill noted. No masses noted. Musculoskeletal: No fluid collection. Decreased range of motion is noted. Extremities: No clubbing, cyanosis noted. [ No edema noted.] Upper extremity pulses 2+. Lower extremity pulses 2+. Capillary refill less than 3 seconds. Skin: No unusual lesions or rashes. No skin breakdown appreciated. Neuro: Awake, alert and oriented 3. Moves all extremities well without hemiparesis or paralysis. No essential tremor is appreciated. Discharge Results Procedures and tests throughout hospitalization: Pending Orders 08/29/16 09:45 Occult Blood, Stool Routine 09/03/16 04:00 BMP w/ Mg [Basic Metabolic Panel w/Mg] IN AM Labs on day of discharge: Labs from last 24 hours 09/02/16 08/29/16 03:06 03:43 Sodium 141 Potassium 4.3 Chloride 99 Carbon Dioxide 38 H Anion Gap 8.3 BUN 21 H Creatinine 1.10 GFR Calculation 83 BUN/Creatinine Ratio 19.00 Glucose 100 Calculated Osmolality 283.3 Calcium 8.2 L Magnesium 2.0 Transferrin 178 L - Imaging and Cardiology Cardiology Procedure: report reviewed by me Procedure: Chest x-ray: report reviewed by me DS: Provider Date of admission: 08/28/16 17:46 Primary care physician: Jostin Montoya MD Attending physician on admission: Shane Muller MD Consults: 08/28/16 20:24 Consult to Pharmacy [CONS] Routine Reason for Pharmacy Consult: Adjust Meds Renal Funct 08/30/16 13:18 Consult to Case Mgmt/Social Srvs [CONS] Routine Reason for Case Mgmt/Social Srvs: Discharge Planning Consult Comment: Needs transportation back to [facility] 08/31/16 14:11 Consult to Physician [CONS] Routine Comment: pt request, missed appt, hx BPH w/ urinary retent. Consulting Provider: David Steiner Consult to Specialist Group: Urology Person Notified: JENARO Date Notified: 08/31/16 Time Notified: 14:25 08/31/16 14:12 Consult to Physical Therapy [CONS] Routine Reason for Physical Therapy: Gait Training Evaluate and Treat Discharging clinician: Katia Quintana NP Expected date of discharge: 09/02/16 <Hugh No - Last Filed: 09/02/16 09:57> Hospital Course - Hospital Course Hospital Course: Cardiology addendum patient examined and chart reviewed. Telemetry shows steady sinus rhythm. Blood pressure 120/78. O2 sat 93% on 2 L Lab data stable. Sodium 141 potassium 4.3 chloride 99 CO2 38 BUN 21 creatinine 1.10 Hemoglobin 11.0 Plan Patient will be discharged and transferred back to the [facility] Physical therapy Lasix 40 mg twice daily Continue Avodart and Flomax
[2016-09-01] MEDS: ENOXAPARIN 40 MG/0.4 ML SYRINGE SUBCUT SCH (20:55)
[2016-09-01] MEDS: ZALEPLON 5 MG CAPSULE PO SCH (20:57)
[2016-09-02 04:08] LABS: Calcium 8.2 MG/DL (8.5-10.1); Osmolality,Calculated 283.3 MOS/KG (273-304); Potassium 4.3 MMOL/L (3.5-5.1)
[2016-09-02 08:11] VITALS: BP 122/90
[2016-09-02] MEDS: FUROSEMIDE 40 MG TABLET PO SCH (08:15)
[2016-09-02] MEDS: TAMSULOSIN 0.4 MG CAPSULE PO SCH (09:15)
[2016-09-02] MEDS: BENZONATATE 100 MG CAPSULE PO SCH (09:15)
[2016-09-02] MEDS: DOCUSATE SODIUM 100 MG CAPSULE PO SCH ×2 (09:15→09:36)
[2016-09-02] MEDS: FLUDROCORTISONE 0.1 MG TABLET PO SCH (09:15)
[2016-09-02] MEDS: PANTOPRAZOLE 40 MG TABLET PO SCH (09:15)
[2016-09-02] MEDS: POTASSIUM CHLORIDE 20 MEQ TABLET PO SCH (09:15)
[2016-09-02] MEDS: DUTASTERIDE 0.5 MG CAPSULE PO SCH (09:15)
[2016-09-02] MEDS: CYANOCOBALAMIN 500 MCG TABLET PO SCH (09:15)
[2016-09-02] MEDS: SERTRALINE 50 MG TABLET PO SCH (09:15)
[2016-09-02] MEDS: FERROUS SULFATE 325 MG TABLET PO SCH (09:15)
[2016-09-02] MEDS: ASPIRIN EC 81 MG TABLET PO SCH (09:15)
[2016-09-02] MEDS: MAGNESIUM OXIDE 400 MG TABLET PO SCH (09:16)
[2016-09-02] MEDS: METOPROLOL TARTRATE 50 MG TABLET PO SCH (09:16)
[2016-09-02] MEDS: FOLIC ACID 1 MG TABLET PO SCH (09:17)
== END 2016-09-02 10:58 | disposition swing bed (61) | DRG 291 ==
LOC: N.TELEN 17:46
PROVIDERS: ADMIT Internal Medicine Clinical Cardiac Electrophysiology; ATTEND Internal Medicine Clinical Cardiac Electrophysiology

== ENCOUNTER 2017-04-06 12:49 | Inpatient (IN) ==
[2017-04-06] MEDS ORDERED: FUROSEMIDE 40 MG/4 ML VIAL IV STA (13:44)
[2017-04-06] MEDS ORDERED: ASPIRIN 325 MG TABLET PO STA (13:44)
[2017-04-06 14:12] LABS: Basophils % 0.1 % (0.0-0.8); Hematocrit 41.2 VOL% (42.0-52.0); Hemoglobin 13.8 GM/DL (14.0-18.0); Immature Granulocytes % 0.7 %; Immature Granulocytes Absolute 0.08 #; Lymphocytes # 0.8 10*3/uL (1.4-4.0); Lymphocytes % 6.8 % (21.2-54.2); Mean Corpuscular HGB Conc 33.5 GM/DL (32-36); Mean Corpuscular Hemoglobin 29 PG (27-34); Mean Corpuscular Volume 86.9 FL (87-102); Mean Platelet Volume 10.2 FL (9.6-12.0); Monocytes # 1.3 10*3/uL (0.11-0.8); Monocytes % 10.5 % (1.7-12.7); Neutrophils # 10.1 10*3/uL (1.4-7.4); Neutrophils % 81.9 % (38.7-73.9); Platelet Count 233 T/CUMM (130-400); Red Blood Count 4.74 MC/CUMM (3.8-5.5); Red Cell Distribution Width 14.7 % (9.3-17.3); White Blood Count 12.3 T/CUMM (4-12)
[2017-04-06 14:30] LABS: Albumin 3.1 G/DL (3.4-5.0); Bilirubin,Total 1.2 MG/DL (0.2-1.0); Calcium 8.8 MG/DL (8.5-10.1); Magnesium 2.2 MG/DL (1.8-2.4); Osmolality,Calculated 295.4 MOS/KG (273-304); Potassium 4.2 MMOL/L (3.5-5.1); Troponin I Only 0.035 NG/ML (0.00-0.045)
[2017-04-06] MEDS ORDERED: FUROSEMIDE 40 MG/4 ML VIAL ONE (14:59)
[2017-04-06] MEDS ORDERED: ASPIRIN 325 MG TABLET ONE (14:59)
[2017-04-06] MEDS ORDERED: diphenhydrAMINE CAP 25 MG CAPSULE PO PRN (15:47)
[2017-04-06] MEDS ORDERED: POTASSIUM CHLORIDE 20 MEQ/15 ML UDCUP PER TUBE PRN (15:47)
[2017-04-06] MEDS ORDERED: MAGNESIUM SULF RIDER 2 GM in PREMIX 1 EACH IV PRN (15:47)
[2017-04-06] MEDS ORDERED: LACTULOSE 20 GM/30 ML UDCUP PO PRN (15:47)
[2017-04-06] MEDS ORDERED: ZALEPLON 5 MG CAPSULE PO PRN (15:47)
[2017-04-06] MEDS ORDERED: MAGNESIUM SULF RIDER 4 GM in PREMIX 1 EACH IV PRN (15:47)
[2017-04-06] MEDS ORDERED: DOCUSATE SODIUM 100 MG CAPSULE PO PRN (15:47)
[2017-04-06] MEDS ORDERED: ACETAMINOPHEN 325 MG TABLET PO PRN (15:47)
[2017-04-06] MEDS ORDERED: ONDANSETRON 4 MG/2 ML VIAL IV PRN (15:47)
[2017-04-06] MEDS: FERROUS SULFATE 325 MG TABLET PO SCH (21:24)
[2017-04-06] MEDS: METOPROLOL TARTRATE 25 MG TABLET PO SCH (21:24)
[2017-04-06] MEDS: FLUDROCORTISONE 0.1 MG TABLET PO SCH (21:24)
[2017-04-06] MEDS: MAGNESIUM OXIDE 400 MG TABLET PO SCH (21:24)
[2017-04-06] MEDS: POTASSIUM CHLORIDE 20 MEQ TABLET PO SCH (21:24)
[2017-04-06] MEDS: PANTOPRAZOLE 40 MG TABLET PO SCH (21:25)
[2017-04-06] MEDS: ENOXAPARIN 40 MG/0.4 ML SYRINGE SUBCUT SCH (21:25)
[2017-04-06] MEDS: TAMSULOSIN 0.4 MG CAPSULE PO SCH (21:25)
[2017-04-06] MEDS: ZINC OXIDE PASTE 113 GM TUBE TOP PRN ×2 (21:26→21:32)
[2017-04-07 00:15] LABS: Apearance,Urine CLEAR (Clear); Bilirubin,Urine Negative (Negative); Blood, Urine Negative (Negative); Glucose,Urine (UA) Negative (Negative); Hyaline Casts,Urine 1 /LPF (0-3); Ketones,Urine Negative (Negative); Mucus,Urine Occasional /LPF (Occasional); Nitrite,Urine Negative (Negative); Protein,Urine Negative; RBC,Urine <1 /HPF (0-4); Urine Color Straw (Yellow); Urine Specific Gravity 1.005 (1.001-1.035); Urine Urobilinogen < 2.0 EU/DL (0.2-1.0)
[2017-04-07] MEDS: HYDROcodone/CHLORPHENIRAMINE ER 5 ML UDCUP PO PRN (05:52)
[2017-04-07] MEDS: ALBUTEROL/IPRATROPIUM 3 ML NEB RESP TX PRN (05:57)
[2017-04-07 06:14] LABS: Eosinophils % 0.1 % (0.00-10.9); Hematocrit 41.1 VOL% (42.0-52.0); Immature Granulocytes % 1.1 %; Immature Granulocytes Absolute 0.12 #; Lymphocytes # 0.9 10*3/uL (1.4-4.0); Lymphocytes % 8.5 % (21.2-54.2); Mean Corpuscular HGB Conc 34.1 GM/DL (32-36); Mean Corpuscular Hemoglobin 30 PG (27-34); Mean Corpuscular Volume 86.5 FL (87-102); Mean Platelet Volume 9.9 FL (9.6-12.0); Neutrophils # 8.8 10*3/uL (1.4-7.4); Neutrophils % 81.3 % (38.7-73.9); Platelet Count 227 T/CUMM (130-400); Red Blood Count 4.75 MC/CUMM (3.8-5.5); Red Cell Distribution Width 14.6 % (9.3-17.3); White Blood Count 10.8 T/CUMM (4-12)
[2017-04-07 06:48] LABS: Free T4 (Free Thyroxine) 1.6 NG/DL (0.76-1.46); Troponin I Only 0.03 NG/ML (0.00-0.045)
[2017-04-07 06:57] LABS: Calcium 8.7 MG/DL (8.5-10.1); Magnesium 2.5 MG/DL (1.8-2.4); Osmolality,Calculated 290.7 MOS/KG (273-304); Potassium 3.8 MMOL/L (3.5-5.1); Risk Ratio 3.58; Thyroid Stimulating Hormone 0.377 uIU/ml (0.358-3.74)
[2017-04-07] MEDS: SERTRALINE 50 MG TABLET PO SCH (08:45)
[2017-04-07] MEDS: FLUDROCORTISONE 0.1 MG TABLET PO SCH ×2 (08:46→20:48)
[2017-04-07] MEDS: DUTASTERIDE 0.5 MG CAPSULE PO SCH (08:47)
[2017-04-07] MEDS: POTASSIUM CHLORIDE 20 MEQ TABLET PO SCH ×2 (08:47→20:55)
[2017-04-07] MEDS: FOLIC ACID 1 MG TABLET PO SCH (08:47)
[2017-04-07] MEDS: CYANOCOBALAMIN 500 MCG TABLET PO SCH (08:47)
[2017-04-07] MEDS: ASPIRIN 325 MG TABLET PO SCH (08:47)
[2017-04-07] MEDS: TAMSULOSIN 0.4 MG CAPSULE PO SCH ×2 (08:47→20:49)
[2017-04-07] MEDS: FERROUS SULFATE 325 MG TABLET PO SCH ×3 (08:48→20:49)
[2017-04-07] MEDS: PANTOPRAZOLE 40 MG TABLET PO SCH ×2 (08:48→20:49)
[2017-04-07] MEDS: DOCUSATE SODIUM 100 MG CAPSULE PO SCH (08:48)
[2017-04-07] MEDS: METOPROLOL TARTRATE 25 MG TABLET PO SCH ×2 (08:48→20:49)
[2017-04-07] MEDS: MAGNESIUM OXIDE 400 MG TABLET PO SCH ×2 (08:48→20:55)
[2017-04-07] MEDS: FUROSEMIDE 40 MG/4 ML VIAL IV SCH ×3 (08:49→20:56)
[2017-04-07] MEDS: BENZONATATE 100 MG CAPSULE PO SCH (20:49)
[2017-04-07] MEDS: ENOXAPARIN 40 MG/0.4 ML SYRINGE SUBCUT SCH (20:59)
[2017-04-08 04:34] LABS: Basophils % 0.1 % (0.0-0.8); Hematocrit 43.7 VOL% (42.0-52.0); Hemoglobin 14.2 GM/DL (14.0-18.0); Immature Granulocytes % 1.1 %; Immature Granulocytes Absolute 0.12 #; Lymphocytes # 1.1 10*3/uL (1.4-4.0); Mean Corpuscular HGB Conc 32.5 GM/DL (32-36); Mean Corpuscular Hemoglobin 28 PG (27-34); Mean Corpuscular Volume 87.4 FL (87-102); Mean Platelet Volume 9.8 FL (9.6-12.0); Monocytes # 1.1 10*3/uL (0.11-0.8); Monocytes % 9.9 % (1.7-12.7); Neutrophils # 8.8 10*3/uL (1.4-7.4); Neutrophils % 78.9 % (38.7-73.9); Platelet Count 237 T/CUMM (130-400); Red Cell Distribution Width 14.7 % (9.3-17.3); White Blood Count 11.2 T/CUMM (4-12)
[2017-04-08] MEDS: ALBUTEROL/IPRATROPIUM 3 ML NEB RESP TX PRN (04:44)
[2017-04-08 05:06] LABS: Calcium 8.6 MG/DL (8.5-10.1); Magnesium 2.4 MG/DL (1.8-2.4); Osmolality,Calculated 296.1 MOS/KG (273-304); Potassium 3.9 MMOL/L (3.5-5.1)
[2017-04-08] MEDS ORDERED: HEPARIN/NACL 0.9% 2 UNITS/ML 2,000 ML IV ONE (11:40)
[2017-04-08] MEDS ORDERED: LIDOCAINE 1% 20 ML VIAL ONE (11:40)
[2017-04-08] MEDS ORDERED: HEPARIN 5,000 UNIT/1 ML VIAL ONE (11:47)
[2017-04-08] MEDS ORDERED: ADENOSINE 90 MG/30 ML VIAL IV ONE (13:26)
[2017-04-08] MEDS ORDERED: VANCOMYCIN 500 MG VIAL ONE (13:47)
[2017-04-08] MEDS ORDERED: fentaNYL 100 MCG/2 ML VIAL ONE (14:46)
[2017-04-08] MEDS ORDERED: SEVOFLURANE 1 UNIT/15 MINUTE INH ONE (14:46)
[2017-04-08] MEDS ORDERED: ETOMIDATE 20 MG/10 ML VIAL IV ONE (14:47)
[2017-04-08] MEDS ORDERED: GLYCOPYRROLATE 0.4 MG/2 ML VIAL ONE (14:47)
[2017-04-08] MEDS ORDERED: SODIUM CHLORIDE 0.9% 250 ML IV ONE (14:47)
[2017-04-08] MEDS ORDERED: methylPREDNISolone SOD SUC 125 MG/2 ML VIAL ONE (14:47)
[2017-04-08] MEDS ORDERED: LACTATED RINGERS 1,000 ML IV ONE (14:47)
[2017-04-08] MEDS ORDERED: NEOSTIGMINE 10 MG/10 ML VIAL ONE (14:47)
[2017-04-08] MEDS ORDERED: ROCURONIUM 100 MG/10 ML VIAL IV ONE (14:47)
[2017-04-08] MEDS ORDERED: ONDANSETRON 4 MG/2 ML VIAL ONE (14:47)
[2017-04-08] MEDS: TAMSULOSIN 0.4 MG CAPSULE PO SCH ×2 (15:53→20:53)
[2017-04-08] MEDS: FERROUS SULFATE 325 MG TABLET PO SCH ×3 (15:53→20:56)
[2017-04-08] MEDS: FUROSEMIDE 40 MG/4 ML VIAL IV SCH ×2 (15:54→21:01)
[2017-04-08] MEDS: MAGNESIUM OXIDE 400 MG TABLET PO SCH ×2 (15:54→20:59)
[2017-04-08] MEDS: FLUDROCORTISONE 0.1 MG TABLET PO SCH ×2 (15:54→20:56)
[2017-04-08] MEDS: POTASSIUM CHLORIDE 20 MEQ TABLET PO SCH ×2 (15:54→20:58)
[2017-04-08] MEDS: METOPROLOL TARTRATE 25 MG TABLET PO SCH ×2 (15:54→20:56)
[2017-04-08] MEDS: BENZONATATE 100 MG CAPSULE PO SCH ×3 (15:55→20:54)
[2017-04-08] MEDS: CYANOCOBALAMIN 500 MCG TABLET PO SCH (15:57)
[2017-04-08] MEDS: ASPIRIN 325 MG TABLET PO SCH (15:58)
[2017-04-08] MEDS: DUTASTERIDE 0.5 MG CAPSULE PO SCH (15:59)
[2017-04-08] MEDS: DOCUSATE SODIUM 100 MG CAPSULE PO SCH (15:59)
[2017-04-08] MEDS: FOLIC ACID 1 MG TABLET PO SCH (15:59)
[2017-04-08] MEDS: PANTOPRAZOLE 40 MG TABLET PO SCH ×2 (15:59→20:56)
[2017-04-08] MEDS: SERTRALINE 50 MG TABLET PO SCH (15:59)
[2017-04-08] MEDS: ENOXAPARIN 40 MG/0.4 ML SYRINGE SUBCUT SCH (22:29)
[2017-04-09 05:07] LABS: Basophils % 0.1 % (0.0-0.8); Hematocrit 40.7 VOL% (42.0-52.0); Hemoglobin 13.1 GM/DL (14.0-18.0); Immature Granulocytes % 1.2 %; Immature Granulocytes Absolute 0.14 #; Lymphocytes % 8.5 % (21.2-54.2); Mean Corpuscular HGB Conc 32.2 GM/DL (32-36); Mean Corpuscular Hemoglobin 29 PG (27-34); Mean Corpuscular Volume 88.9 FL (87-102); Mean Platelet Volume 9.8 FL (9.6-12.0); Monocytes % 8.5 % (1.7-12.7); Neutrophils # 9.6 10*3/uL (1.4-7.4); Neutrophils % 81.7 % (38.7-73.9); Platelet Count 227 T/CUMM (130-400); Red Blood Count 4.58 MC/CUMM (3.8-5.5); Red Cell Distribution Width 14.7 % (9.3-17.3); White Blood Count 11.7 T/CUMM (4-12)
[2017-04-09] MEDS: ALBUTEROL/IPRATROPIUM 3 ML NEB RESP TX PRN ×2 (05:23→20:30)
[2017-04-09 05:34] LABS: Calcium 8.7 MG/DL (8.5-10.1); Magnesium 2.3 MG/DL (1.8-2.4); Potassium 3.9 MMOL/L (3.5-5.1)
[2017-04-09] MEDS ORDERED: VANCOMYCIN INJ 1,000 MG in SODIUM CHLORIDE 0.9% 250 ML IV ONE (06:00)
[2017-04-09] MEDS ORDERED: VANCOMYCIN 500 MG VIAL ONE ×2 (08:59→11:42)
[2017-04-09] MEDS ORDERED: PROPOFOL 200 MG/20 ML VIAL IV ONE (09:00)
[2017-04-09] MEDS ORDERED: LIDOCAINE 100 MG/5 ML SYRINGE ONE (09:00)
[2017-04-09] MEDS ORDERED: HEPARIN/NACL 0.9% 2 UNITS/ML 500 ML IV ONE (09:01)
[2017-04-09] MEDS ORDERED: LIDOCAINE 1% 20 ML VIAL ONE ×2 (09:07→09:48)
[2017-04-09] MEDS ORDERED: TISSUE ADHESIVE 1 EACH APPLICATOR TOP ONE ×2 (11:32→11:45)
[2017-04-09] MEDS ORDERED: fentaNYL 100 MCG/2 ML VIAL ONE (12:58)
[2017-04-09] MEDS ORDERED: SODIUM CHLORIDE 0.9% 500 ML IV ONE (12:58)
[2017-04-09] MEDS ORDERED: LEVOFLOXACIN 500 MG TABLET PO SCH (13:00)
[2017-04-09] MEDS: BENZONATATE 100 MG CAPSULE PO SCH ×3 (14:40→21:24)
[2017-04-09] MEDS: FLUDROCORTISONE 0.1 MG TABLET PO SCH ×2 (14:41→21:25)
[2017-04-09] MEDS: FERROUS SULFATE 325 MG TABLET PO SCH ×3 (14:41→21:24)
[2017-04-09] MEDS: POTASSIUM CHLORIDE 20 MEQ TABLET PO SCH ×2 (14:41→21:25)
[2017-04-09] MEDS: CYANOCOBALAMIN 500 MCG TABLET PO SCH (14:41)
[2017-04-09] MEDS: TAMSULOSIN 0.4 MG CAPSULE PO SCH ×2 (14:41→21:24)
[2017-04-09] MEDS: SERTRALINE 50 MG TABLET PO SCH (14:41)
[2017-04-09] MEDS: ASPIRIN 325 MG TABLET PO SCH (14:42)
[2017-04-09] MEDS: METOPROLOL TARTRATE 25 MG TABLET PO SCH ×2 (14:42→21:24)
[2017-04-09] MEDS: PANTOPRAZOLE 40 MG TABLET PO SCH ×2 (14:42→21:24)
[2017-04-09] MEDS: DUTASTERIDE 0.5 MG CAPSULE PO SCH (14:42)
[2017-04-09] MEDS: MAGNESIUM OXIDE 400 MG TABLET PO SCH ×2 (14:42→21:24)
[2017-04-09] MEDS: DOCUSATE SODIUM 100 MG CAPSULE PO SCH (14:42)
[2017-04-09] MEDS: FUROSEMIDE 40 MG/4 ML VIAL IV SCH (14:43)
[2017-04-09] MEDS: FOLIC ACID 1 MG TABLET PO SCH (14:43)
[2017-04-09] MEDS ORDERED: FUROSEMIDE 40 MG/4 ML VIAL IV SCH (17:10)
[2017-04-09] MEDS: AMOXICILLIN/CLAV 875 MG TABLET PO SCH (21:24)
[2017-04-09] MEDS: HYDROcodone/CHLORPHENIRAMINE ER 5 ML UDCUP PO PRN (21:24)
[2017-04-09] MEDS: oxyCODONE/ACETAMINOPHEN 5-325 MG TABLET PO PRN (21:25)
[2017-04-09] MEDS: ENOXAPARIN 40 MG/0.4 ML SYRINGE SUBCUT SCH (21:30)
[2017-04-10] MEDS ORDERED: VANCOMYCIN INJ 1,000 MG in SODIUM CHLORIDE 0.9% 250 ML IV ONE (01:00)
[2017-04-10] MEDS: oxyCODONE/ACETAMINOPHEN 5-325 MG TABLET PO PRN ×2 (05:34→20:35)
[2017-04-10 05:57] LABS: Basophils % 0.2 % (0.0-0.8); Eosinophils % 0.2 % (0.00-10.9); Hematocrit 39.2 VOL% (42.0-52.0); Hemoglobin 12.6 GM/DL (14.0-18.0); Immature Granulocytes % 1.2 %; Immature Granulocytes Absolute 0.15 #; Lymphocytes # 1.2 10*3/uL (1.4-4.0); Lymphocytes % 9.7 % (21.2-54.2); Mean Corpuscular HGB Conc 32.1 GM/DL (32-36); Mean Corpuscular Hemoglobin 29 PG (27-34); Mean Corpuscular Volume 89.5 FL (87-102); Mean Platelet Volume 10.5 FL (9.6-12.0); Monocytes # 1.2 10*3/uL (0.11-0.8); Monocytes % 9.7 % (1.7-12.7); Neutrophils # 9.9 10*3/uL (1.4-7.4); Platelet Count 197 T/CUMM (130-400); Red Blood Count 4.38 MC/CUMM (3.8-5.5); Red Cell Distribution Width 14.8 % (9.3-17.3); White Blood Count 12.5 T/CUMM (4-12)
[2017-04-10 06:49] LABS: Calcium 8.3 MG/DL (8.5-10.1); Magnesium 2.3 MG/DL (1.8-2.4); Osmolality,Calculated 299.7 MOS/KG (273-304)
[2017-04-10] MEDS: CYANOCOBALAMIN 500 MCG TABLET PO SCH (09:18)
[2017-04-10] MEDS: DUTASTERIDE 0.5 MG CAPSULE PO SCH (09:18)
[2017-04-10] MEDS: BENZONATATE 100 MG CAPSULE PO SCH ×3 (09:18→20:34)
[2017-04-10] MEDS: MAGNESIUM OXIDE 400 MG TABLET PO SCH ×2 (09:19→20:33)
[2017-04-10] MEDS: PANTOPRAZOLE 40 MG TABLET PO SCH ×2 (09:19→20:34)
[2017-04-10] MEDS: TAMSULOSIN 0.4 MG CAPSULE PO SCH ×2 (09:19→20:34)
[2017-04-10] MEDS: FERROUS SULFATE 325 MG TABLET PO SCH ×3 (09:19→20:34)
[2017-04-10] MEDS: SERTRALINE 50 MG TABLET PO SCH (09:19)
[2017-04-10] MEDS: POTASSIUM CHLORIDE 20 MEQ TABLET PO SCH ×2 (09:19→20:35)
[2017-04-10] MEDS: METOPROLOL TARTRATE 25 MG TABLET PO SCH (09:19)
[2017-04-10] MEDS: FLUDROCORTISONE 0.1 MG TABLET PO SCH ×2 (09:19→20:34)
[2017-04-10] MEDS: FOLIC ACID 1 MG TABLET PO SCH (09:19)
[2017-04-10] MEDS: AMOXICILLIN/CLAV 875 MG TABLET PO SCH ×2 (09:19→20:34)
[2017-04-10] MEDS: DOCUSATE SODIUM 100 MG CAPSULE PO SCH (09:19)
[2017-04-10] MEDS: ASPIRIN 325 MG TABLET PO SCH (09:20)
[2017-04-10] MEDS: SOTALOL 80 MG TABLET PO SCH ×2 (11:40→20:33)
[2017-04-10] MEDS: POLYETHYLENE GLYCOL POWDER 17 GM PACK PO SCH (14:31)
[2017-04-10] MEDS: FUROSEMIDE 40 MG TABLET PO SCH (15:16)
[2017-04-10] MEDS: ALBUTEROL/IPRATROPIUM 3 ML NEB RESP TX PRN (18:00)
[2017-04-10] MEDS: ENOXAPARIN 40 MG/0.4 ML SYRINGE SUBCUT SCH (20:33)
[2017-04-11 06:17] LABS: Basophils % 0.2 % (0.0-0.8); Eosinophils # 0.1 10*3/uL (0.0-0.87); Eosinophils % 1.2 % (0.00-10.9); Hematocrit 39.2 VOL% (42.0-52.0); Hemoglobin 12.8 GM/DL (14.0-18.0); Immature Granulocytes Absolute 0.22 #; Lymphocytes # 1.4 10*3/uL (1.4-4.0); Lymphocytes % 12.8 % (21.2-54.2); Mean Corpuscular HGB Conc 32.7 GM/DL (32-36); Mean Corpuscular Hemoglobin 29 PG (27-34); Mean Corpuscular Volume 89.9 FL (87-102); Mean Platelet Volume 10.4 FL (9.6-12.0); Monocytes % 8.7 % (1.7-12.7); Neutrophils # 8.5 10*3/uL (1.4-7.4); Neutrophils % 75.1 % (38.7-73.9); Platelet Count 161 T/CUMM (130-400); Red Blood Count 4.36 MC/CUMM (3.8-5.5); Red Cell Distribution Width 14.6 % (9.3-17.3); White Blood Count 11.3 T/CUMM (4-12)
[2017-04-11 06:54] LABS: Calcium 8.3 MG/DL (8.5-10.1); Magnesium 2.3 MG/DL (1.8-2.4); Osmolality,Calculated 299.7 MOS/KG (273-304); Potassium 3.8 MMOL/L (3.5-5.1)
[2017-04-11] MEDS: CYANOCOBALAMIN 500 MCG TABLET PO SCH (08:44)
[2017-04-11] MEDS: POLYETHYLENE GLYCOL POWDER 17 GM PACK PO SCH (08:44)
[2017-04-11] MEDS: AMOXICILLIN/CLAV 875 MG TABLET PO SCH ×2 (08:45→21:52)
[2017-04-11] MEDS: DOCUSATE SODIUM 100 MG CAPSULE PO SCH (08:45)
[2017-04-11] MEDS: BENZONATATE 100 MG CAPSULE PO SCH ×3 (08:45→21:51)
[2017-04-11] MEDS: PANTOPRAZOLE 40 MG TABLET PO SCH ×2 (08:45→21:51)
[2017-04-11] MEDS: MAGNESIUM OXIDE 400 MG TABLET PO SCH ×2 (08:45→21:51)
[2017-04-11] MEDS: SERTRALINE 50 MG TABLET PO SCH (08:45)
[2017-04-11] MEDS: FLUDROCORTISONE 0.1 MG TABLET PO SCH ×2 (08:45→21:52)
[2017-04-11] MEDS: TAMSULOSIN 0.4 MG CAPSULE PO SCH ×2 (08:45→21:52)
[2017-04-11] MEDS: POTASSIUM CHLORIDE 20 MEQ TABLET PO SCH ×2 (08:45→21:51)
[2017-04-11] MEDS: FUROSEMIDE 40 MG TABLET PO SCH ×2 (08:46→15:09)
[2017-04-11] MEDS: SOTALOL 80 MG TABLET PO SCH ×2 (08:46→21:52)
[2017-04-11] MEDS: FOLIC ACID 1 MG TABLET PO SCH (08:46)
[2017-04-11] MEDS: DUTASTERIDE 0.5 MG CAPSULE PO SCH (08:46)
[2017-04-11] MEDS: ASPIRIN EC 81 MG TABLET PO SCH (08:46)
[2017-04-11] MEDS: FERROUS SULFATE 325 MG TABLET PO SCH ×3 (08:46→21:51)
[2017-04-11] MEDS: ENOXAPARIN 40 MG/0.4 ML SYRINGE SUBCUT SCH (21:52)
[2017-04-12] MEDS: oxyCODONE/ACETAMINOPHEN 5-325 MG TABLET PO PRN (04:27)
[2017-04-12 05:19] LABS: Basophils % 0.3 % (0.0-0.8); Eosinophils # 0.1 10*3/uL (0.0-0.87); Eosinophils % 1.3 % (0.00-10.9); Hematocrit 39.8 VOL% (42.0-52.0); Hemoglobin 12.6 GM/DL (14.0-18.0); Immature Granulocytes % 2.3 %; Immature Granulocytes Absolute 0.25 #; Lymphocytes # 1.8 10*3/uL (1.4-4.0); Lymphocytes % 16.4 % (21.2-54.2); Mean Corpuscular HGB Conc 31.7 GM/DL (32-36); Mean Corpuscular Hemoglobin 29 PG (27-34); Mean Corpuscular Volume 90.9 FL (87-102); Mean Platelet Volume 10.1 FL (9.6-12.0); Monocytes # 0.9 10*3/uL (0.11-0.8); Monocytes % 7.8 % (1.7-12.7); Neutrophils # 7.8 10*3/uL (1.4-7.4); Neutrophils % 71.9 % (38.7-73.9); Platelet Count 149 T/CUMM (130-400); Red Blood Count 4.38 MC/CUMM (3.8-5.5); Red Cell Distribution Width 14.5 % (9.3-17.3); White Blood Count 10.9 T/CUMM (4-12)
[2017-04-12 05:48] LABS: Magnesium 2.2 MG/DL (1.8-2.4); Potassium 4.1 MMOL/L (3.5-5.1)
[2017-04-12] MEDS: ALBUTEROL/IPRATROPIUM 3 ML NEB RESP TX PRN (10:07)
[2017-04-12] MEDS: TAMSULOSIN 0.4 MG CAPSULE PO SCH ×2 (10:20→22:04)
[2017-04-12] MEDS: FOLIC ACID 1 MG TABLET PO SCH (10:20)
[2017-04-12] MEDS: CYANOCOBALAMIN 500 MCG TABLET PO SCH (10:20)
[2017-04-12] MEDS: POTASSIUM CHLORIDE 20 MEQ TABLET PO SCH ×2 (10:21→22:04)
[2017-04-12] MEDS: BENZONATATE 100 MG CAPSULE PO SCH ×3 (10:21→22:03)
[2017-04-12] MEDS: AMOXICILLIN/CLAV 875 MG TABLET PO SCH ×2 (10:21→22:03)
[2017-04-12] MEDS: DUTASTERIDE 0.5 MG CAPSULE PO SCH (10:21)
[2017-04-12] MEDS: DOCUSATE SODIUM 100 MG CAPSULE PO SCH ×2 (10:21→22:04)
[2017-04-12] MEDS: FERROUS SULFATE 325 MG TABLET PO SCH ×3 (10:21→22:03)
[2017-04-12] MEDS: SERTRALINE 50 MG TABLET PO SCH (10:22)
[2017-04-12] MEDS: POLYETHYLENE GLYCOL POWDER 17 GM PACK PO SCH (10:22)
[2017-04-12] MEDS: PANTOPRAZOLE 40 MG TABLET PO SCH ×2 (10:22→22:04)
[2017-04-12] MEDS: FLUDROCORTISONE 0.1 MG TABLET PO SCH ×2 (10:22→22:03)
[2017-04-12] MEDS: MAGNESIUM OXIDE 400 MG TABLET PO SCH ×2 (10:22→22:04)
[2017-04-12] MEDS: FUROSEMIDE 40 MG TABLET PO SCH ×2 (10:22→15:16)
[2017-04-12] MEDS: SOTALOL 80 MG TABLET PO SCH ×2 (10:25→22:03)
[2017-04-12] MEDS: ASPIRIN EC 81 MG TABLET PO SCH (10:25)
[2017-04-12] MEDS: ENOXAPARIN 40 MG/0.4 ML SYRINGE SUBCUT SCH (22:04)
[2017-04-13] MEDS: CYANOCOBALAMIN 500 MCG TABLET PO SCH (09:19)
[2017-04-13] MEDS: POLYETHYLENE GLYCOL POWDER 17 GM PACK PO SCH (09:19)
[2017-04-13] MEDS: BENZONATATE 100 MG CAPSULE PO SCH (09:20)
[2017-04-13] MEDS: SERTRALINE 50 MG TABLET PO SCH (09:20)
[2017-04-13] MEDS: ASPIRIN EC 81 MG TABLET PO SCH (09:20)
[2017-04-13] MEDS: PANTOPRAZOLE 40 MG TABLET PO SCH (09:20)
[2017-04-13] MEDS: DOCUSATE SODIUM 100 MG CAPSULE PO SCH (09:20)
[2017-04-13] MEDS: SOTALOL 80 MG TABLET PO SCH (09:21)
[2017-04-13] MEDS: FLUDROCORTISONE 0.1 MG TABLET PO SCH (09:21)
[2017-04-13] MEDS: DUTASTERIDE 0.5 MG CAPSULE PO SCH (09:21)
[2017-04-13] MEDS: POTASSIUM CHLORIDE 20 MEQ TABLET PO SCH (09:21)
[2017-04-13] MEDS: FOLIC ACID 1 MG TABLET PO SCH (09:21)
[2017-04-13] MEDS: FUROSEMIDE 40 MG TABLET PO SCH (09:21)
[2017-04-13] MEDS: TAMSULOSIN 0.4 MG CAPSULE PO SCH (09:21)
[2017-04-13] MEDS: MAGNESIUM OXIDE 400 MG TABLET PO SCH (09:21)
[2017-04-13] MEDS: AMOXICILLIN/CLAV 875 MG TABLET PO SCH (09:22)
[2017-04-13] MEDS: FERROUS SULFATE 325 MG TABLET PO SCH (09:23)
[2017-04-13 12:05] VITALS: BP 109/73
== END 2017-04-13 15:00 | DRG 242 ==
LOC: N.ED 12:49 → N.EDINP 15:47 → N.TELES 17:35
PROVIDERS: ADMIT Internal Medicine Clinical Cardiac Electrophysiology; ATTEND Internal Medicine Clinical Cardiac Electrophysiology

== ENCOUNTER 2017-07-29 20:33 | Inpatient (IN) ==
[2017-07-29] MEDS ORDERED: methylPREDNISolone SOD SUC 125 MG/2 ML VIAL IV STA (20:56)
[2017-07-29] MEDS ORDERED: DOXYCYCLINE HYCLATE INJ 100 MG in SODIUM CHLORIDE 0.9% 100 ML IV STA (20:58)
[2017-07-29] MEDS ORDERED: ALBUTEROL 2.5 MG/3 ML NEB RESP TX SCH (21:00)
[2017-07-29] MEDS ORDERED: SODIUM CHLORIDE 0.9% 100 ML IV ONE (21:11)
[2017-07-29] MEDS ORDERED: DOXYCYCLINE HYCLATE 100 MG VIAL ONE (21:11)
[2017-07-29] MEDS ORDERED: methylPREDNISolone SOD SUC 125 MG/2 ML VIAL ONE (21:11)
[2017-07-29 21:27] LABS: Basophils % 0.4 % (0.0-0.8); Eosinophils # 0.2 10*3/uL (0.0-0.87); Eosinophils % 2.2 % (0.00-10.9); Hematocrit 37.2 VOL% (42.0-52.0); Hemoglobin 11.6 GM/DL (14.0-18.0); Immature Granulocytes % 0.5 %; Immature Granulocytes Absolute 0.04 #; Lymphocytes # 1.8 10*3/uL (1.4-4.0); Lymphocytes % 24.7 % (21.2-54.2); Mean Corpuscular HGB Conc 31.2 GM/DL (32-36); Mean Corpuscular Hemoglobin 28 PG (27-34); Mean Platelet Volume 9.3 FL (9.6-12.0); Monocytes # 0.8 10*3/uL (0.11-0.8); Monocytes % 10.4 % (1.7-12.7); Neutrophils # 4.5 10*3/uL (1.4-7.4); Neutrophils % 61.8 % (38.7-73.9); Platelet Count 207 T/CUMM (130-400); Red Blood Count 4.09 MC/CUMM (3.8-5.5); Red Cell Distribution Width 13.2 % (9.3-17.3); White Blood Count 7.3 T/CUMM (4-12)
[2017-07-29 21:37] LABS: INR 1.1; PT Patient Result 11.1 SECS; Partial Thromboplastin Time 25.9 SECS (0-40)
[2017-07-29 22:08] LABS: Troponin I Only < 0.015 NG/ML (0.00-0.045)
[2017-07-29 22:09] LABS: Albumin 2.7 G/DL (3.4-5.0); Bilirubin,Total 0.5 MG/DL (0.2-1.0); Calcium 8.1 MG/DL (8.5-10.1); Osmolality,Calculated 283.4 MOS/KG (273-304); Potassium 3.6 MMOL/L (3.5-5.1)
[2017-07-30] MEDS ORDERED: traMADol 50 MG TABLET PO PRN (00:07)
[2017-07-30] MEDS ORDERED: ONDANSETRON 4 MG/2 ML VIAL IV PRN (00:07)
[2017-07-30] MEDS ORDERED: FUROSEMIDE 40 MG/4 ML VIAL IV ONE (00:07)
[2017-07-30] MEDS ORDERED: ZALEPLON 5 MG CAPSULE PO PRN (00:07)
[2017-07-30] MEDS ORDERED: MORPHINE 2 MG/1 ML SYRINGE IV PRN (00:07)
[2017-07-30] MEDS: SOTALOL 80 MG TABLET PO SCH ×3 (01:28→21:16)
[2017-07-30] MEDS: PIPERACILLIN/TAZOBACTAM 3,375 MG in SODIUM CHLORIDE 0.9% 100 ML IV SCH ×3 (03:06→21:17)
[2017-07-30] MEDS ORDERED: ALBUTEROL/IPRATROPIUM 3 ML NEB RESP TX PRN (03:08)
[2017-07-30] MEDS ORDERED: guaiFENesin 200 MG/10 ML UDCUP PO PRN (06:04)
[2017-07-30] MEDS: ALBUTEROL/IPRATROPIUM 3 ML NEB RESP TX SCH ×3 (07:10→19:02)
[2017-07-30 07:45] LABS: Risk Ratio 3.71; VLDL CHOLESTEROL 16.2 MG/DL
[2017-07-30] MEDS: DOCUSATE SODIUM 100 MG CAPSULE PO SCH ×2 (08:32→21:15)
[2017-07-30] MEDS: DUTASTERIDE 0.5 MG CAPSULE PO SCH (08:32)
[2017-07-30] MEDS: ASPIRIN EC 81 MG TABLET PO SCH (08:32)
[2017-07-30] MEDS: CYANOCOBALAMIN 500 MCG TABLET PO SCH (08:32)
[2017-07-30] MEDS: POTASSIUM CHLORIDE 20 MEQ TABLET PO SCH ×2 (08:32→21:14)
[2017-07-30] MEDS: TAMSULOSIN 0.4 MG CAPSULE PO SCH ×2 (08:32→21:14)
[2017-07-30] MEDS: FUROSEMIDE 40 MG/4 ML VIAL IV SCH ×2 (08:32→16:03)
[2017-07-30] MEDS: BENZONATATE 100 MG CAPSULE PO SCH ×3 (08:32→21:14)
[2017-07-30] MEDS: MAGNESIUM OXIDE 400 MG TABLET PO SCH ×2 (08:32→21:14)
[2017-07-30] MEDS: PANTOPRAZOLE 40 MG TABLET PO SCH (08:33)
[2017-07-30] MEDS: FERROUS SULFATE 325 MG TABLET PO SCH ×3 (08:33→16:03)
[2017-07-30] MEDS: ENOXAPARIN 40 MG/0.4 ML SYRINGE SUBCUT SCH (08:33)
[2017-07-30] MEDS: SERTRALINE 50 MG TABLET PO SCH (08:33)
[2017-07-30] MEDS: FLUDROCORTISONE 0.1 MG TABLET PO SCH ×2 (08:33→21:14)
[2017-07-30] MEDS: FOLIC ACID 1 MG TABLET PO SCH (08:33)
[2017-07-30 09:20] LABS: ABG Base Excess 13.6 MMOL/L (-2.5-2.5); ABG HCO3 37.5 MMOL/L (20-26); ABG Oxygen Saturation 98.7 % (95-100); ABG PCO2 60.9 MM HG (35-48); ABG PH 7.434 (7.35-7.45); ABG TCO2 36.2 MMOL/L (23-27)
[2017-07-30 16:32] LABS: Troponin I Only < 0.015 NG/ML (0.00-0.045)
[2017-07-30] MEDS: ATORVASTATIN 20 MG TABLET PO SCH (21:16)
[2017-07-31] MEDS: ALBUTEROL/IPRATROPIUM 3 ML NEB RESP TX SCH ×4 (00:24→19:40)
[2017-07-31] MEDS: PIPERACILLIN/TAZOBACTAM 3,375 MG in SODIUM CHLORIDE 0.9% 100 ML IV SCH ×3 (05:01→20:14)
[2017-07-31 06:24] LABS: Basophils % 0.2 % (0.0-0.8); Hematocrit 33.1 VOL% (42.0-52.0); Hemoglobin 10.9 GM/DL (14.0-18.0); Immature Granulocytes % 0.5 %; Immature Granulocytes Absolute 0.05 #; Lymphocytes # 1.7 10*3/uL (1.4-4.0); Lymphocytes % 16.1 % (21.2-54.2); Mean Corpuscular HGB Conc 32.9 GM/DL (32-36); Mean Corpuscular Hemoglobin 29 PG (27-34); Mean Corpuscular Volume 87.3 FL (87-102); Mean Platelet Volume 9.9 FL (9.6-12.0); Monocytes % 9.4 % (1.7-12.7); Neutrophils # 7.6 10*3/uL (1.4-7.4); Neutrophils % 73.8 % (38.7-73.9); Platelet Count 252 T/CUMM (130-400); Red Blood Count 3.79 MC/CUMM (3.8-5.5); Red Cell Distribution Width 13.2 % (9.3-17.3); White Blood Count 10.2 T/CUMM (4-12)
[2017-07-31 07:05] LABS: Calcium 8.4 MG/DL (8.5-10.1); Osmolality,Calculated 287.5 MOS/KG (273-304); Potassium 3.3 MMOL/L (3.5-5.1)
[2017-07-31] MEDS: DUTASTERIDE 0.5 MG CAPSULE PO SCH (08:16)
[2017-07-31] MEDS: DOCUSATE SODIUM 100 MG CAPSULE PO SCH ×2 (08:16→20:23)
[2017-07-31] MEDS: FERROUS SULFATE 325 MG TABLET PO SCH ×3 (08:17→16:18)
[2017-07-31] MEDS: SERTRALINE 50 MG TABLET PO SCH (08:17)
[2017-07-31] MEDS: BENZONATATE 100 MG CAPSULE PO SCH ×3 (08:17→20:17)
[2017-07-31] MEDS: TAMSULOSIN 0.4 MG CAPSULE PO SCH ×2 (08:17→20:18)
[2017-07-31] MEDS: PANTOPRAZOLE 40 MG TABLET PO SCH (08:17)
[2017-07-31] MEDS: FOLIC ACID 1 MG TABLET PO SCH (08:17)
[2017-07-31] MEDS: MAGNESIUM OXIDE 400 MG TABLET PO SCH ×2 (08:17→20:17)
[2017-07-31] MEDS: CYANOCOBALAMIN 500 MCG TABLET PO SCH (08:17)
[2017-07-31] MEDS: SOTALOL 80 MG TABLET PO SCH ×2 (08:17→20:17)
[2017-07-31] MEDS: ENOXAPARIN 40 MG/0.4 ML SYRINGE SUBCUT SCH ×2 (08:18→08:25)
[2017-07-31] MEDS: ASPIRIN EC 81 MG TABLET PO SCH (08:18)
[2017-07-31] MEDS: POTASSIUM CHLORIDE 20 MEQ TABLET PO SCH ×3 (08:18→11:51)
[2017-07-31] MEDS: FLUDROCORTISONE 0.1 MG TABLET PO SCH ×2 (08:18→20:17)
[2017-07-31] MEDS: FUROSEMIDE 40 MG/4 ML VIAL IV SCH (08:26)
[2017-07-31] MEDS ORDERED: ZINC OXIDE PASTE 113 GM TUBE TOP PRN (14:40)
[2017-07-31] MEDS: ATORVASTATIN 20 MG TABLET PO SCH (20:24)
[2017-08-01] MEDS: ALBUTEROL/IPRATROPIUM 3 ML NEB RESP TX SCH ×4 (01:46→20:13)
[2017-08-01] MEDS: PIPERACILLIN/TAZOBACTAM 3,375 MG in SODIUM CHLORIDE 0.9% 100 ML IV SCH ×3 (04:56→22:57)
[2017-08-01 06:45] LABS: Basophils # 0.1 10*3/uL (0.0-0.2); Basophils % 0.6 % (0.0-0.8); Eosinophils # 0.1 10*3/uL (0.0-0.87); Eosinophils % 1.7 % (0.00-10.9); Hematocrit 35.2 VOL% (42.0-52.0); Immature Granulocytes % 0.5 %; Immature Granulocytes Absolute 0.04 #; Lymphocytes # 2.3 10*3/uL (1.4-4.0); Lymphocytes % 27.5 % (21.2-54.2); Mean Corpuscular HGB Conc 31.3 GM/DL (32-36); Mean Corpuscular Hemoglobin 28 PG (27-34); Mean Corpuscular Volume 90.5 FL (87-102); Mean Platelet Volume 9.6 FL (9.6-12.0); Monocytes # 0.8 10*3/uL (0.11-0.8); Monocytes % 9.9 % (1.7-12.7); Neutrophils # 5.1 10*3/uL (1.4-7.4); Neutrophils % 59.8 % (38.7-73.9); Platelet Count 230 T/CUMM (130-400); Red Blood Count 3.89 MC/CUMM (3.8-5.5); Red Cell Distribution Width 13.5 % (9.3-17.3); White Blood Count 8.5 T/CUMM (4-12)
[2017-08-01 07:20] LABS: Calcium 8.5 MG/DL (8.5-10.1); Potassium 3.3 MMOL/L (3.5-5.1)
[2017-08-01] MEDS: FERROUS SULFATE 325 MG TABLET PO SCH ×3 (08:15→16:08)
[2017-08-01] MEDS: ASPIRIN EC 81 MG TABLET PO SCH (08:15)
[2017-08-01] MEDS: DOCUSATE SODIUM 100 MG CAPSULE PO SCH ×2 (08:15→21:17)
[2017-08-01] MEDS: FOLIC ACID 1 MG TABLET PO SCH (08:15)
[2017-08-01] MEDS: PANTOPRAZOLE 40 MG TABLET PO SCH (08:15)
[2017-08-01] MEDS: BENZONATATE 100 MG CAPSULE PO SCH ×3 (08:15→21:03)
[2017-08-01] MEDS: DUTASTERIDE 0.5 MG CAPSULE PO SCH (08:15)
[2017-08-01] MEDS: SOTALOL 80 MG TABLET PO SCH ×2 (08:15→21:04)
[2017-08-01] MEDS: MAGNESIUM OXIDE 400 MG TABLET PO SCH ×2 (08:15→22:56)
[2017-08-01] MEDS: SERTRALINE 50 MG TABLET PO SCH (08:16)
[2017-08-01] MEDS: CYANOCOBALAMIN 500 MCG TABLET PO SCH (08:16)
[2017-08-01] MEDS: TAMSULOSIN 0.4 MG CAPSULE PO SCH ×2 (08:16→21:04)
[2017-08-01] MEDS: FLUDROCORTISONE 0.1 MG TABLET PO SCH ×2 (08:16→21:03)
[2017-08-01] MEDS: ENOXAPARIN 40 MG/0.4 ML SYRINGE SUBCUT SCH (08:21)
[2017-08-01] MEDS ORDERED: POTASSIUM CHLORIDE 20 MEQ TABLET PO PRN (08:40)
[2017-08-01] MEDS: POTASSIUM CHLORIDE 20 MEQ TABLET PO PRN ×3 (08:53→14:29)
[2017-08-01] MEDS: acetaZOLAMIDE 250 MG TABLET PO SCH (21:04)
[2017-08-01] MEDS: POTASSIUM CHLORIDE 10 MEQ TABLET PO SCH (21:05)
[2017-08-01] MEDS: ATORVASTATIN 20 MG TABLET PO SCH (21:17)
[2017-08-02] MEDS: ALBUTEROL/IPRATROPIUM 3 ML NEB RESP TX SCH ×4 (00:55→19:14)
[2017-08-02 06:35] LABS: Basophils % 0.4 % (0.0-0.8); Eosinophils # 0.2 10*3/uL (0.0-0.87); Eosinophils % 2.7 % (0.00-10.9); Hematocrit 35.9 VOL% (42.0-52.0); Hemoglobin 11.1 GM/DL (14.0-18.0); Immature Granulocytes % 0.7 %; Immature Granulocytes Absolute 0.06 #; Lymphocytes # 2.5 10*3/uL (1.4-4.0); Lymphocytes % 30.3 % (21.2-54.2); Mean Corpuscular HGB Conc 30.9 GM/DL (32-36); Mean Corpuscular Hemoglobin 28 PG (27-34); Mean Corpuscular Volume 91.1 FL (87-102); Mean Platelet Volume 9.7 FL (9.6-12.0); Monocytes # 0.9 10*3/uL (0.11-0.8); Monocytes % 10.7 % (1.7-12.7); Neutrophils # 4.5 10*3/uL (1.4-7.4); Neutrophils % 55.2 % (38.7-73.9); Platelet Count 245 T/CUMM (130-400); Red Blood Count 3.94 MC/CUMM (3.8-5.5); Red Cell Distribution Width 13.3 % (9.3-17.3); White Blood Count 8.2 T/CUMM (4-12)
[2017-08-02 06:56] LABS: Calcium 8.3 MG/DL (8.5-10.1); Osmolality,Calculated 288.1 MOS/KG (273-304); Potassium 3.6 MMOL/L (3.5-5.1)
[2017-08-02] MEDS: ASPIRIN EC 81 MG TABLET PO SCH (10:13)
[2017-08-02] MEDS: FERROUS SULFATE 325 MG TABLET PO SCH ×3 (10:13→18:44)
[2017-08-02] MEDS: DUTASTERIDE 0.5 MG CAPSULE PO SCH (10:14)
[2017-08-02] MEDS: DOCUSATE SODIUM 100 MG CAPSULE PO SCH ×3 (10:14→21:11)
[2017-08-02] MEDS: acetaZOLAMIDE 250 MG TABLET PO SCH ×2 (10:14→16:02)
[2017-08-02] MEDS: SOTALOL 80 MG TABLET PO SCH ×2 (10:14→21:10)
[2017-08-02] MEDS: FLUDROCORTISONE 0.1 MG TABLET PO SCH ×2 (10:15→21:10)
[2017-08-02] MEDS: MAGNESIUM OXIDE 400 MG TABLET PO SCH ×2 (10:16→21:10)
[2017-08-02] MEDS: POTASSIUM CHLORIDE 10 MEQ TABLET PO SCH ×2 (10:16→21:09)
[2017-08-02] MEDS: FOLIC ACID 1 MG TABLET PO SCH (10:16)
[2017-08-02] MEDS: CYANOCOBALAMIN 500 MCG TABLET PO SCH (10:17)
[2017-08-02] MEDS: SERTRALINE 50 MG TABLET PO SCH (10:17)
[2017-08-02] MEDS: BENZONATATE 100 MG CAPSULE PO SCH ×3 (10:18→21:10)
[2017-08-02] MEDS: PANTOPRAZOLE 40 MG TABLET PO SCH (10:18)
[2017-08-02] MEDS: TAMSULOSIN 0.4 MG CAPSULE PO SCH ×2 (10:18→21:10)
[2017-08-02] MEDS: ENOXAPARIN 40 MG/0.4 ML SYRINGE SUBCUT SCH (10:21)
[2017-08-02] MEDS: PIPERACILLIN/TAZOBACTAM 3,375 MG in SODIUM CHLORIDE 0.9% 100 ML IV SCH ×2 (10:37→16:03)
[2017-08-02] MEDS ORDERED: DESITIN 4OZ/NYSTATIN 15 GRAM MIXTURE PASTE TOP SCH (21:00)
[2017-08-03] MEDS: ALBUTEROL/IPRATROPIUM 3 ML NEB RESP TX SCH ×2 (00:45→07:34)
[2017-08-03] MEDS: PIPERACILLIN/TAZOBACTAM 3,375 MG in SODIUM CHLORIDE 0.9% 100 ML IV SCH (01:31)
[2017-08-03 05:46] LABS: Basophils % 0.4 % (0.0-0.8); Eosinophils # 0.3 10*3/uL (0.0-0.87); Eosinophils % 4.2 % (0.00-10.9); Hematocrit 35.3 VOL% (42.0-52.0); Hemoglobin 11.3 GM/DL (14.0-18.0); Immature Granulocytes % 0.9 %; Immature Granulocytes Absolute 0.07 #; Lymphocytes # 2.2 10*3/uL (1.4-4.0); Lymphocytes % 28.2 % (21.2-54.2); Mean Corpuscular Hemoglobin 29 PG (27-34); Mean Corpuscular Volume 89.4 FL (87-102); Mean Platelet Volume 9.5 FL (9.6-12.0); Monocytes # 0.6 10*3/uL (0.11-0.8); Monocytes % 8.1 % (1.7-12.7); Neutrophils # 4.6 10*3/uL (1.4-7.4); Neutrophils % 58.2 % (38.7-73.9); Platelet Count 232 T/CUMM (130-400); Red Blood Count 3.95 MC/CUMM (3.8-5.5); Red Cell Distribution Width 13.6 % (9.3-17.3); White Blood Count 7.9 T/CUMM (4-12)
[2017-08-03 06:16] LABS: Calcium 8.1 MG/DL (8.5-10.1); Potassium 3.6 MMOL/L (3.5-5.1)
[2017-08-03] MEDS: acetaZOLAMIDE 250 MG TABLET PO SCH (09:45)
[2017-08-03] MEDS: ASPIRIN EC 81 MG TABLET PO SCH (09:46)
[2017-08-03] MEDS: FERROUS SULFATE 325 MG TABLET PO SCH (09:46)
[2017-08-03] MEDS: SOTALOL 80 MG TABLET PO SCH (09:47)
[2017-08-03] MEDS: DUTASTERIDE 0.5 MG CAPSULE PO SCH (09:47)
[2017-08-03] MEDS: TAMSULOSIN 0.4 MG CAPSULE PO SCH (09:48)
[2017-08-03] MEDS: FOLIC ACID 1 MG TABLET PO SCH (09:48)
[2017-08-03] MEDS: POTASSIUM CHLORIDE 10 MEQ TABLET PO SCH (09:48)
[2017-08-03] MEDS: FLUDROCORTISONE 0.1 MG TABLET PO SCH (09:48)
[2017-08-03] MEDS: BENZONATATE 100 MG CAPSULE PO SCH (09:49)
[2017-08-03] MEDS: PANTOPRAZOLE 40 MG TABLET PO SCH (09:49)
[2017-08-03] MEDS: MAGNESIUM OXIDE 400 MG TABLET PO SCH (09:49)
[2017-08-03] MEDS: CYANOCOBALAMIN 500 MCG TABLET PO SCH (09:50)
[2017-08-03] MEDS: SERTRALINE 50 MG TABLET PO SCH (09:50)
[2017-08-03] MEDS: ENOXAPARIN 40 MG/0.4 ML SYRINGE SUBCUT SCH (09:56)
[2017-08-03] MEDS: DOCUSATE SODIUM 100 MG CAPSULE PO SCH (09:56)
[2017-08-03 11:51] VITALS: BP 144/95
== END 2017-08-03 12:20 | DRG 193 ==
LOC: EDBD → EDUNIT# → N.ED 20:33 → N.EDINP 23:08 → SUATTDRO 23:08 → N.5E 23:37
PROVIDERS: ADMIT Internal Medicine Cardiovascular Disease; ATTEND Internal Medicine

== ENCOUNTER 2018-03-30 21:27 | Inpatient (IN) ==
[2018-03-31] MEDS ORDERED: MORPHINE 4 MG/1 ML VIAL IV PRN (01:50)
[2018-03-31] MEDS ORDERED: ONDANSETRON 4 MG/2 ML VIAL IV PRN (01:50)
[2018-03-31] MEDS ORDERED: ACETAMINOPHEN 325 MG TABLET PO PRN (01:50)
[2018-03-31] MEDS ORDERED: ALPRAZolam 0.25 MG TABLET PO PRN (01:54)
[2018-03-31] MEDS ORDERED: traMADol 50 MG TABLET PO PRN (01:54)
[2018-03-31] MEDS ORDERED: POLYETHYLENE GLYCOL POWDER 17 GM PACK PO PRN (02:09)
[2018-03-31 02:39] LABS: Basophils % 0.4 % (0.0-0.8); Eosinophils # 0.1 10*3/uL (0.0-0.87); Eosinophils % 1.7 % (0.00-10.9); Hematocrit 37.4 VOL% (42.0-52.0); Hemoglobin 11.7 GM/DL (14.0-18.0); Immature Granulocytes % 0.7 %; Immature Granulocytes Absolute 0.06 #; Lymphocytes # 1.3 10*3/uL (1.4-4.0); Lymphocytes % 16.1 % (21.2-54.2); Mean Corpuscular HGB Conc 31.3 GM/DL (32-36); Mean Corpuscular Hemoglobin 29 PG (27-34); Mean Corpuscular Volume 92.1 FL (87-102); Mean Platelet Volume 9.5 FL (9.6-12.0); Monocytes # 0.7 10*3/uL (0.11-0.8); Monocytes % 8.1 % (1.7-12.7); Neutrophils # 5.9 10*3/uL (1.4-7.4); Platelet Count 191 T/CUMM (130-400); Red Blood Count 4.06 MC/CUMM (3.8-5.5); White Blood Count 8.1 T/CUMM (4-12)
[2018-03-31 03:04] LABS: Albumin 3.1 G/DL (3.4-5.0); Bilirubin,Total 0.9 MG/DL (0.2-1.0); Osmolality,Calculated 289.8 MOS/KG (273-304); Risk Ratio 3.31; Thyroid Stimulating Hormone 0.759 uIU/ml (0.358-3.74); Total Protein 7.7 G/DL (6.4-8.3); VLDL CHOLESTEROL 22.6 MG/DL
[2018-03-31] MEDS: POTASSIUM CHLORIDE 20 MEQ TABLET PO PRN ×3 (05:06→18:46)
[2018-03-31] MEDS ORDERED: SOTALOL 80 MG TABLET PO SCH (09:00)
[2018-03-31] MEDS: FUROSEMIDE 40 MG/4 ML VIAL IV SCH ×2 (09:40→15:04)
[2018-03-31] MEDS: DOCUSATE SODIUM 100 MG CAPSULE PO SCH (09:41)
[2018-03-31] MEDS: SERTRALINE 50 MG TABLET PO SCH (09:41)
[2018-03-31] MEDS: BENZONATATE 100 MG CAPSULE PO SCH ×3 (09:41→20:58)
[2018-03-31] MEDS: CYANOCOBALAMIN 500 MCG TABLET PO SCH (09:42)
[2018-03-31] MEDS: FERROUS SULFATE 325 MG TABLET PO SCH ×3 (09:42→16:58)
[2018-03-31] MEDS: FOLIC ACID 1 MG TABLET PO SCH (09:42)
[2018-03-31] MEDS: PANTOPRAZOLE 40 MG TABLET PO SCH ×2 (09:42→20:59)
[2018-03-31] MEDS: MAGNESIUM OXIDE 400 MG TABLET PO SCH ×2 (09:43→20:58)
[2018-03-31] MEDS: FLUDROCORTISONE 0.1 MG TABLET PO SCH ×2 (09:43→20:58)
[2018-03-31] MEDS: DUTASTERIDE 0.5 MG CAPSULE PO SCH (09:43)
[2018-03-31] MEDS: ASPIRIN EC 81 MG TABLET PO SCH (09:43)
[2018-03-31] MEDS: SOTALOL 80 MG TABLET PO SCH ×2 (09:44→20:58)
[2018-03-31] MEDS: TAMSULOSIN 0.4 MG CAPSULE PO SCH ×2 (09:44→20:59)
[2018-03-31] MEDS: POTASSIUM CHLORIDE 10 MEQ TABLET PO SCH ×2 (09:44→20:58)
[2018-03-31] MEDS: ALBUTEROL/IPRATROPIUM 3 ML NEB RESP TX SCH ×3 (12:23→18:50)
[2018-03-31] MEDS: SACUBITRIL/VALSARTAN 49-51 MG TABLET PO SCH ×2 (12:34→20:58)
[2018-04-01] MEDS: ALBUTEROL/IPRATROPIUM 3 ML NEB RESP TX SCH ×5 (01:10→19:44)
[2018-04-01 01:34] LABS: Basophils % 0.3 % (0.0-0.8); Eosinophils # 0.2 10*3/uL (0.0-0.87); Hematocrit 35.7 VOL% (42.0-52.0); Hemoglobin 10.7 GM/DL (14.0-18.0); Immature Granulocytes % 0.4 %; Immature Granulocytes Absolute 0.03 #; Lymphocytes # 1.8 10*3/uL (1.4-4.0); Lymphocytes % 22.4 % (21.2-54.2); Mean Corpuscular Hemoglobin 28 PG (27-34); Mean Corpuscular Volume 93.2 FL (87-102); Mean Platelet Volume 9.6 FL (9.6-12.0); Monocytes # 0.8 10*3/uL (0.11-0.8); Monocytes % 10.3 % (1.7-12.7); Neutrophils # 5.1 10*3/uL (1.4-7.4); Neutrophils % 64.6 % (38.7-73.9); Platelet Count 184 T/CUMM (130-400); Red Blood Count 3.83 MC/CUMM (3.8-5.5); Red Cell Distribution Width 14.9 % (9.3-17.3); White Blood Count 7.9 T/CUMM (4-12)
[2018-04-01 02:01] LABS: Calcium 8.7 MG/DL (8.5-10.1); Potassium 4.1 MMOL/L (3.5-5.1)
[2018-04-01] MEDS: acetaZOLAMIDE 250 MG TABLET PO SCH (09:51)
[2018-04-01] MEDS: CYANOCOBALAMIN 500 MCG TABLET PO SCH (09:51)
[2018-04-01] MEDS: FOLIC ACID 1 MG TABLET PO SCH (09:51)
[2018-04-01] MEDS: PANTOPRAZOLE 40 MG TABLET PO SCH ×2 (09:51→20:49)
[2018-04-01] MEDS: DUTASTERIDE 0.5 MG CAPSULE PO SCH (09:51)
[2018-04-01] MEDS: FERROUS SULFATE 325 MG TABLET PO SCH ×3 (09:51→18:09)
[2018-04-01] MEDS: SOTALOL 80 MG TABLET PO SCH ×2 (09:52→20:47)
[2018-04-01] MEDS: MAGNESIUM OXIDE 400 MG TABLET PO SCH ×2 (09:52→20:50)
[2018-04-01] MEDS: FUROSEMIDE 40 MG/4 ML VIAL IV SCH (09:52)
[2018-04-01] MEDS: ASPIRIN EC 81 MG TABLET PO SCH (09:52)
[2018-04-01] MEDS: SERTRALINE 50 MG TABLET PO SCH (09:52)
[2018-04-01] MEDS: POTASSIUM CHLORIDE 10 MEQ TABLET PO SCH ×2 (09:52→20:49)
[2018-04-01] MEDS: TAMSULOSIN 0.4 MG CAPSULE PO SCH ×2 (09:52→20:50)
[2018-04-01] MEDS: FLUDROCORTISONE 0.1 MG TABLET PO SCH ×2 (09:52→20:50)
[2018-04-01] MEDS: DOCUSATE SODIUM 100 MG CAPSULE PO SCH (09:52)
[2018-04-01] MEDS: BENZONATATE 100 MG CAPSULE PO SCH ×3 (09:52→20:50)
[2018-04-01] MEDS ORDERED: POLYVINYL ALCOHOL 1.4% OPH SOLN 15 ML BOTTLE BOTH EYES PRN (14:45)
[2018-04-01 19:27] LABS: Apearance,Urine CLEAR (Clear); Bilirubin,Urine Negative (Negative); Blood, Urine Small mg/dL (Negative); Glucose,Urine (UA) Negative (Negative); Hyaline Casts,Urine 5 /LPF (0-3); Ketones,Urine Negative (Negative); Mucus,Urine Occasional /LPF (Occasional); Nitrite,Urine Negative (Negative); Protein,Urine Negative; RBC,Urine 9 /HPF (0-4); Urine Color Yellow (Yellow); Urine Specific Gravity 1.015 (1.001-1.035); Urine Urobilinogen < 2.0 EU/DL (0.2-1.0); WBC,Urine 2 /HPF (0-6)
[2018-04-01] MEDS: MINERAL OIL/PETROLATUM OPH OINT 3.5 GM TUBE RIGHT EYE SCH (20:50)
[2018-04-02] MEDS: ALBUTEROL/IPRATROPIUM 3 ML NEB RESP TX SCH ×4 (00:20→20:12)
[2018-04-02 05:38] LABS: Basophils % 0.4 % (0.0-0.8); Eosinophils # 0.2 10*3/uL (0.0-0.87); Eosinophils % 2.7 % (0.00-10.9); Hematocrit 35.6 VOL% (42.0-52.0); Hemoglobin 10.9 GM/DL (14.0-18.0); Immature Granulocytes % 0.7 %; Immature Granulocytes Absolute 0.05 #; Lymphocytes # 1.5 10*3/uL (1.4-4.0); Lymphocytes % 20.2 % (21.2-54.2); Mean Corpuscular HGB Conc 30.6 GM/DL (32-36); Mean Corpuscular Hemoglobin 29 PG (27-34); Mean Corpuscular Volume 93.9 FL (87-102); Mean Platelet Volume 9.9 FL (9.6-12.0); Monocytes # 0.8 10*3/uL (0.11-0.8); Monocytes % 10.4 % (1.7-12.7); Neutrophils # 4.9 10*3/uL (1.4-7.4); Neutrophils % 65.6 % (38.7-73.9); Platelet Count 194 T/CUMM (130-400); Red Blood Count 3.79 MC/CUMM (3.8-5.5); Red Cell Distribution Width 14.9 % (9.3-17.3); White Blood Count 7.5 T/CUMM (4-12)
[2018-04-02 05:54] LABS: Calcium 8.5 MG/DL (8.5-10.1); Osmolality,Calculated 287.4 MOS/KG (273-304); Potassium 3.7 MMOL/L (3.5-5.1)
[2018-04-02] MEDS: FERROUS SULFATE 325 MG TABLET PO SCH ×3 (08:51→17:15)
[2018-04-02] MEDS: BENZONATATE 100 MG CAPSULE PO SCH ×3 (08:51→20:39)
[2018-04-02] MEDS: acetaZOLAMIDE 250 MG TABLET PO SCH (08:51)
[2018-04-02] MEDS: FLUDROCORTISONE 0.1 MG TABLET PO SCH ×2 (08:51→20:58)
[2018-04-02] MEDS: TAMSULOSIN 0.4 MG CAPSULE PO SCH ×2 (08:51→20:39)
[2018-04-02] MEDS: SOTALOL 80 MG TABLET PO SCH ×2 (08:52→20:04)
[2018-04-02] MEDS: FOLIC ACID 1 MG TABLET PO SCH (08:52)
[2018-04-02] MEDS: CYANOCOBALAMIN 500 MCG TABLET PO SCH (08:52)
[2018-04-02] MEDS: SERTRALINE 50 MG TABLET PO SCH (08:52)
[2018-04-02] MEDS: PANTOPRAZOLE 40 MG TABLET PO SCH ×2 (08:52→20:39)
[2018-04-02] MEDS: DOCUSATE SODIUM 100 MG CAPSULE PO SCH (08:52)
[2018-04-02] MEDS: DUTASTERIDE 0.5 MG CAPSULE PO SCH (08:52)
[2018-04-02] MEDS: ASPIRIN EC 81 MG TABLET PO SCH (08:52)
[2018-04-02] MEDS: MAGNESIUM OXIDE 400 MG TABLET PO SCH ×2 (08:52→20:39)
[2018-04-02] MEDS: POTASSIUM CHLORIDE 10 MEQ TABLET PO SCH ×2 (08:52→20:39)
[2018-04-02] MEDS: FUROSEMIDE 40 MG/4 ML VIAL IV SCH (09:00)
[2018-04-02] MEDS: MINERAL OIL/PETROLATUM OPH OINT 3.5 GM TUBE RIGHT EYE SCH (20:58)
[2018-04-03] MEDS: ALBUTEROL/IPRATROPIUM 3 ML NEB RESP TX SCH ×4 (02:06→20:31)
[2018-04-03] MEDS: BENZONATATE 100 MG CAPSULE PO SCH ×4 (09:34→20:50)
[2018-04-03] MEDS: FLUDROCORTISONE 0.1 MG TABLET PO SCH ×2 (09:35→20:46)
[2018-04-03] MEDS: MAGNESIUM OXIDE 400 MG TABLET PO SCH ×2 (09:35→20:46)
[2018-04-03] MEDS: DOCUSATE SODIUM 100 MG CAPSULE PO SCH (09:35)
[2018-04-03] MEDS: DUTASTERIDE 0.5 MG CAPSULE PO SCH (09:35)
[2018-04-03] MEDS: FUROSEMIDE 40 MG/4 ML VIAL IV SCH (09:35)
[2018-04-03] MEDS: CYANOCOBALAMIN 500 MCG TABLET PO SCH (09:36)
[2018-04-03] MEDS: PANTOPRAZOLE 40 MG TABLET PO SCH ×2 (09:36→20:46)
[2018-04-03] MEDS: SERTRALINE 50 MG TABLET PO SCH (09:36)
[2018-04-03] MEDS: TAMSULOSIN 0.4 MG CAPSULE PO SCH ×2 (09:36→20:46)
[2018-04-03] MEDS: ASPIRIN EC 81 MG TABLET PO SCH (09:36)
[2018-04-03] MEDS: FERROUS SULFATE 325 MG TABLET PO SCH ×3 (09:36→18:15)
[2018-04-03] MEDS: FOLIC ACID 1 MG TABLET PO SCH (09:37)
[2018-04-03] MEDS: acetaZOLAMIDE 250 MG TABLET PO SCH (09:48)
[2018-04-03] MEDS: POTASSIUM CHLORIDE 10 MEQ TABLET PO SCH ×2 (09:48→20:46)
[2018-04-03] MEDS: SOTALOL 80 MG TABLET PO SCH ×2 (09:57→20:46)
[2018-04-03] MEDS: MINERAL OIL/PETROLATUM OPH OINT 3.5 GM TUBE RIGHT EYE SCH (20:46)
[2018-04-04] MEDS: ALBUTEROL/IPRATROPIUM 3 ML NEB RESP TX SCH ×4 (02:31→19:39)
[2018-04-04 05:47] LABS: Basophils % 0.2 % (0.0-0.8); Eosinophils # 0.1 10*3/uL (0.0-0.87); Eosinophils % 1.3 % (0.00-10.9); Hematocrit 35.7 VOL% (42.0-52.0); Hemoglobin 10.9 GM/DL (14.0-18.0); Immature Granulocytes % 0.4 %; Immature Granulocytes Absolute 0.05 #; Lymphocytes # 1.4 10*3/uL (1.4-4.0); Lymphocytes % 12.6 % (21.2-54.2); Mean Corpuscular HGB Conc 30.5 GM/DL (32-36); Mean Corpuscular Hemoglobin 29 PG (27-34); Mean Corpuscular Volume 93.5 FL (87-102); Mean Platelet Volume 10.4 FL (9.6-12.0); Monocytes % 9.2 % (1.7-12.7); Neutrophils # 8.5 10*3/uL (1.4-7.4); Neutrophils % 76.3 % (38.7-73.9); Platelet Count 202 T/CUMM (130-400); Red Blood Count 3.82 MC/CUMM (3.8-5.5); Red Cell Distribution Width 14.8 % (9.3-17.3); White Blood Count 11.2 T/CUMM (4-12)
[2018-04-04 06:04] LABS: Calcium 8.6 MG/DL (8.5-10.1); Osmolality,Calculated 289.4 MOS/KG (273-304); Potassium 4.4 MMOL/L (3.5-5.1)
[2018-04-04] MEDS: POTASSIUM CHLORIDE 10 MEQ TABLET PO SCH ×2 (09:54→22:15)
[2018-04-04] MEDS: DOCUSATE SODIUM 100 MG CAPSULE PO SCH (09:54)
[2018-04-04] MEDS: MAGNESIUM OXIDE 400 MG TABLET PO SCH ×2 (09:54→22:15)
[2018-04-04] MEDS: TAMSULOSIN 0.4 MG CAPSULE PO SCH ×2 (09:54→22:16)
[2018-04-04] MEDS: FLUDROCORTISONE 0.1 MG TABLET PO SCH ×2 (09:54→22:15)
[2018-04-04] MEDS: BENZONATATE 100 MG CAPSULE PO SCH ×3 (09:54→22:16)
[2018-04-04] MEDS: DUTASTERIDE 0.5 MG CAPSULE PO SCH (09:54)
[2018-04-04] MEDS: ASPIRIN EC 81 MG TABLET PO SCH (09:55)
[2018-04-04] MEDS: SOTALOL 80 MG TABLET PO SCH ×2 (09:56→22:15)
[2018-04-04] MEDS: SERTRALINE 50 MG TABLET PO SCH (09:56)
[2018-04-04] MEDS: FOLIC ACID 1 MG TABLET PO SCH (09:57)
[2018-04-04] MEDS: FERROUS SULFATE 325 MG TABLET PO SCH ×3 (09:57→17:11)
[2018-04-04] MEDS: PANTOPRAZOLE 40 MG TABLET PO SCH ×2 (09:57→22:15)
[2018-04-04] MEDS ORDERED: SKIN HEALING OINT (AQUAPHOR) 50 GM TUBE TOP PRN (10:23)
[2018-04-04] MEDS: acetaZOLAMIDE 250 MG TABLET PO SCH (10:42)
[2018-04-04] MEDS: FUROSEMIDE 40 MG TABLET PO SCH (10:42)
[2018-04-04] MEDS: CYANOCOBALAMIN 500 MCG TABLET PO SCH (10:43)
[2018-04-04] MEDS: MINERAL OIL/PETROLATUM OPH OINT 3.5 GM TUBE RIGHT EYE SCH (22:16)
[2018-04-05] MEDS: ALBUTEROL/IPRATROPIUM 3 ML NEB RESP TX SCH ×2 (01:44→07:30)
[2018-04-05 06:24] LABS: Basophils % 0.5 % (0.0-0.8); Eosinophils # 0.3 10*3/uL (0.0-0.87); Eosinophils % 5.1 % (0.00-10.9); Hematocrit 33.4 VOL% (42.0-52.0); Hemoglobin 10.3 GM/DL (14.0-18.0); Immature Granulocytes % 0.5 %; Immature Granulocytes Absolute 0.03 #; Lymphocytes # 1.5 10*3/uL (1.4-4.0); Lymphocytes % 24.9 % (21.2-54.2); Mean Corpuscular HGB Conc 30.8 GM/DL (32-36); Mean Corpuscular Hemoglobin 29 PG (27-34); Mean Corpuscular Volume 94.1 FL (87-102); Mean Platelet Volume 10.2 FL (9.6-12.0); Monocytes # 0.7 10*3/uL (0.11-0.8); Neutrophils # 3.3 10*3/uL (1.4-7.4); Platelet Count 172 T/CUMM (130-400); Red Blood Count 3.55 MC/CUMM (3.8-5.5); Red Cell Distribution Width 14.6 % (9.3-17.3); White Blood Count 5.8 T/CUMM (4-12)
[2018-04-05 06:32] LABS: Calcium 8.5 MG/DL (8.5-10.1); Osmolality,Calculated 289.4 MOS/KG (273-304); Potassium 4.3 MMOL/L (3.5-5.1)
[2018-04-05] MEDS: PANTOPRAZOLE 40 MG TABLET PO SCH (08:34)
[2018-04-05] MEDS: SERTRALINE 50 MG TABLET PO SCH (08:34)
[2018-04-05] MEDS: POTASSIUM CHLORIDE 10 MEQ TABLET PO SCH (08:35)
[2018-04-05] MEDS: TAMSULOSIN 0.4 MG CAPSULE PO SCH (08:35)
[2018-04-05] MEDS: CYANOCOBALAMIN 500 MCG TABLET PO SCH (08:35)
[2018-04-05] MEDS: DOCUSATE SODIUM 100 MG CAPSULE PO SCH (08:35)
[2018-04-05] MEDS: FERROUS SULFATE 325 MG TABLET PO SCH (08:35)
[2018-04-05] MEDS: SOTALOL 80 MG TABLET PO SCH (08:35)
[2018-04-05] MEDS: acetaZOLAMIDE 250 MG TABLET PO SCH (08:36)
[2018-04-05] MEDS: FUROSEMIDE 40 MG TABLET PO SCH (08:36)
[2018-04-05] MEDS: ASPIRIN EC 81 MG TABLET PO SCH (08:36)
[2018-04-05] MEDS: FLUDROCORTISONE 0.1 MG TABLET PO SCH (08:37)
[2018-04-05] MEDS: FOLIC ACID 1 MG TABLET PO SCH (08:37)
[2018-04-05] MEDS: MAGNESIUM OXIDE 400 MG TABLET PO SCH (08:37)
[2018-04-05] MEDS: DUTASTERIDE 0.5 MG CAPSULE PO SCH (08:37)
[2018-04-05] MEDS: BENZONATATE 100 MG CAPSULE PO SCH (08:37)
[2018-04-05 11:36] VITALS: BP 92/56
== END 2018-04-05 14:05 | DRG 291 ==
LOC: SUATTDRO 23:54 → N.TELEN 23:54
PROVIDERS: ADMIT Internal Medicine; ATTEND Internal Medicine

== ENCOUNTER 2018-05-13 08:16 | Inpatient (IN) ==
[2018-05-13] MEDS ORDERED: BALANCED SALT IRRIG SOLN 15 ML BOTTLE ONE (11:46)
[2018-05-13] MEDS ORDERED: LIDOCAINE 1%/EPI INJ 20 ML VIAL ONE (11:47)
[2018-05-13] MEDS ORDERED: BACITRACIN OPH OINT 3.5 GM TUBE ONE (12:58)
[2018-05-13] MEDS ORDERED: KETAMINE 500 MG/10 ML VIAL ONE (13:25)
[2018-05-13] MEDS ORDERED: MORPHINE 4 MG/1 ML VIAL IV PRN (16:44)
[2018-05-13] MEDS ORDERED: ONDANSETRON 4 MG/2 ML VIAL IV PRN (16:44)
[2018-05-13] MEDS ORDERED: MOISTURIZING CREAM (EUCERIN) 113 GM JAR TOP PRN (16:46)
[2018-05-13] MEDS ORDERED: POLYETHYLENE GLYCOL POWDER 17 GM PACK PO PRN (16:46)
[2018-05-13] MEDS ORDERED: ALPRAZolam 0.25 MG TABLET PO PRN (16:46)
[2018-05-13] MEDS ORDERED: ALBUTEROL/IPRATROPIUM 3 ML NEB RESP TX PRN (16:46)
[2018-05-13] MEDS ORDERED: ALBUTEROL/IPRATROPIUM 3 ML NEB RESP TX ONE (16:49)
[2018-05-13 17:33] LABS: Basophils % 0.5 % (0.0-0.8); Eosinophils # 0.1 10*3/uL (0.0-0.87); Eosinophils % 1.4 % (0.00-10.9); Hematocrit 41.6 VOL% (42.0-52.0); Hemoglobin 12.8 GM/DL (14.0-18.0); Immature Granulocytes % 0.3 %; Immature Granulocytes Absolute 0.03 #; Lymphocytes # 1.8 10*3/uL (1.4-4.0); Lymphocytes % 20.4 % (21.2-54.2); Mean Corpuscular HGB Conc 30.8 GM/DL (32-36); Mean Corpuscular Hemoglobin 28 PG (27-34); Mean Corpuscular Volume 91.8 FL (87-102); Mean Platelet Volume 9.9 FL (9.6-12.0); Monocytes # 0.7 10*3/uL (0.11-0.8); Monocytes % 8.5 % (1.7-12.7); Neutrophils % 68.9 % (38.7-73.9); Platelet Count 178 T/CUMM (130-400); Red Blood Count 4.53 MC/CUMM (3.8-5.5); Red Cell Distribution Width 13.7 % (9.3-17.3); White Blood Count 8.7 T/CUMM (4-12)
[2018-05-13] MEDS: FUROSEMIDE 40 MG TABLET PO SCH (17:47)
[2018-05-13] MEDS: FERROUS SULFATE 325 MG TABLET PO SCH (17:47)
[2018-05-13 18:15] LABS: Bilirubin,Total 0.7 MG/DL (0.2-1.0); Calcium 8.9 MG/DL (8.5-10.1); Osmolality,Calculated 286.3 MOS/KG (273-304); Potassium 4.2 MMOL/L (3.5-5.1); Total Protein 7.7 G/DL (6.4-8.3)
[2018-05-13] MEDS: POTASSIUM CHLORIDE 10 MEQ TABLET PO SCH (21:20)
[2018-05-13] MEDS: SOTALOL 80 MG TABLET PO SCH (21:20)
[2018-05-13] MEDS: BENZONATATE 100 MG CAPSULE PO SCH (21:21)
[2018-05-13] MEDS: FLUDROCORTISONE 0.1 MG TABLET PO SCH (21:21)
[2018-05-13] MEDS: TAMSULOSIN 0.4 MG CAPSULE PO SCH (21:21)
[2018-05-13] MEDS: MAGNESIUM OXIDE 400 MG TABLET PO SCH (21:21)
[2018-05-13] MEDS: SKIN HEALING OINT (AQUAPHOR) 50 GM TUBE TOP SCH (21:23)
[2018-05-13] MEDS: MINERAL OIL/PETROLATUM OPH OINT 3.5 GM TUBE RIGHT EYE SCH (21:24)
[2018-05-14] MEDS: FUROSEMIDE 40 MG TABLET PO SCH (08:44)
[2018-05-14] MEDS: SOTALOL 80 MG TABLET PO SCH ×2 (08:44→20:54)
[2018-05-14] MEDS: acetaZOLAMIDE 250 MG TABLET PO SCH (08:44)
[2018-05-14] MEDS: CYANOCOBALAMIN 500 MCG TABLET PO SCH (08:44)
[2018-05-14] MEDS: DUTASTERIDE 0.5 MG CAPSULE PO SCH (08:45)
[2018-05-14] MEDS: TAMSULOSIN 0.4 MG CAPSULE PO SCH ×2 (08:45→20:54)
[2018-05-14] MEDS: FLUDROCORTISONE 0.1 MG TABLET PO SCH ×2 (08:45→20:54)
[2018-05-14] MEDS: PANTOPRAZOLE 40 MG TABLET PO SCH (08:45)
[2018-05-14] MEDS: FERROUS SULFATE 325 MG TABLET PO SCH ×3 (08:45→18:11)
[2018-05-14] MEDS: SERTRALINE 50 MG TABLET PO SCH (08:45)
[2018-05-14] MEDS: DOCUSATE SODIUM 100 MG CAPSULE PO SCH (08:45)
[2018-05-14] MEDS: POTASSIUM CHLORIDE 10 MEQ TABLET PO SCH ×2 (08:45→20:54)
[2018-05-14] MEDS: FOLIC ACID 1 MG TABLET PO SCH (08:45)
[2018-05-14] MEDS: BENZONATATE 100 MG CAPSULE PO SCH ×3 (08:45→20:54)
[2018-05-14] MEDS: MAGNESIUM OXIDE 400 MG TABLET PO SCH ×2 (08:45→20:54)
[2018-05-14] MEDS: ASPIRIN EC 81 MG TABLET PO SCH (08:46)
[2018-05-14] MEDS: SKIN HEALING OINT (AQUAPHOR) 50 GM TUBE TOP SCH ×2 (09:49→20:54)
[2018-05-14] MEDS: POLYVINYL ALCOHOL 1.4% OPH SOLN 15 ML BOTTLE BOTH EYES SCH (09:49)
[2018-05-14] MEDS ORDERED: ALBUTEROL/IPRATROPIUM 3 ML NEB RESP TX SCH (09:57)
[2018-05-14] MEDS: ALBUTEROL/IPRATROPIUM 3 ML NEB RESP TX SCH ×3 (10:09→19:06)
[2018-05-14] MEDS: HEPARIN 5,000 UNIT/1 ML VIAL SUBCUT SCH ×2 (13:09→18:11)
[2018-05-14] MEDS ORDERED: FUROSEMIDE 40 MG/4 ML VIAL IV ONE (13:49)
[2018-05-14] MEDS: DOXYCYCLINE HYCLATE 100 MG CAPSULE PO SCH ×2 (15:39→21:09)
[2018-05-14] MEDS: MINERAL OIL/PETROLATUM OPH OINT 3.5 GM TUBE RIGHT EYE SCH (20:55)
[2018-05-14] MEDS: BUDESONIDE/FORMOTEROL 160-4.5 INHALER 6 GM INH SCH (20:56)
[2018-05-15] MEDS: HEPARIN 5,000 UNIT/1 ML VIAL SUBCUT SCH ×3 (02:29→17:35)
[2018-05-15 03:27] LABS: Calcium 8.6 MG/DL (8.5-10.1); Osmolality,Calculated 287.4 MOS/KG (273-304); Potassium 3.9 MMOL/L (3.5-5.1)
[2018-05-15] MEDS: ALBUTEROL/IPRATROPIUM 3 ML NEB RESP TX SCH ×4 (07:18→19:16)
[2018-05-15] MEDS ORDERED: FUROSEMIDE 40 MG/4 ML VIAL IV SCH (09:00)
[2018-05-15] MEDS: BENZONATATE 100 MG CAPSULE PO SCH ×3 (10:17→21:26)
[2018-05-15] MEDS: TAMSULOSIN 0.4 MG CAPSULE PO SCH ×2 (10:17→21:14)
[2018-05-15] MEDS: POTASSIUM CHLORIDE 10 MEQ TABLET PO SCH ×2 (10:18→21:14)
[2018-05-15] MEDS: FOLIC ACID 1 MG TABLET PO SCH (10:18)
[2018-05-15] MEDS: MAGNESIUM OXIDE 400 MG TABLET PO SCH ×2 (10:18→21:14)
[2018-05-15] MEDS: acetaZOLAMIDE 250 MG TABLET PO SCH (10:18)
[2018-05-15] MEDS: ASPIRIN EC 81 MG TABLET PO SCH (10:19)
[2018-05-15] MEDS: SERTRALINE 50 MG TABLET PO SCH (10:19)
[2018-05-15] MEDS: CYANOCOBALAMIN 500 MCG TABLET PO SCH (10:19)
[2018-05-15] MEDS: PANTOPRAZOLE 40 MG TABLET PO SCH (10:19)
[2018-05-15] MEDS: FERROUS SULFATE 325 MG TABLET PO SCH ×3 (10:19→16:40)
[2018-05-15] MEDS: DOXYCYCLINE HYCLATE 100 MG CAPSULE PO SCH ×2 (10:19→21:27)
[2018-05-15] MEDS: DUTASTERIDE 0.5 MG CAPSULE PO SCH (10:19)
[2018-05-15] MEDS: FLUDROCORTISONE 0.1 MG TABLET PO SCH ×2 (10:19→21:14)
[2018-05-15] MEDS: SOTALOL 80 MG TABLET PO SCH ×2 (10:19→21:13)
[2018-05-15] MEDS: SKIN HEALING OINT (AQUAPHOR) 50 GM TUBE TOP SCH ×2 (10:20→21:44)
[2018-05-15] MEDS: DOCUSATE SODIUM 100 MG CAPSULE PO SCH (10:20)
[2018-05-15] MEDS: POLYVINYL ALCOHOL 1.4% OPH SOLN 15 ML BOTTLE BOTH EYES SCH (10:20)
[2018-05-15] MEDS: BUDESONIDE/FORMOTEROL 160-4.5 INHALER 6 GM INH SCH ×2 (10:22→21:18)
[2018-05-15] MEDS: FUROSEMIDE 40 MG TABLET PO SCH (16:39)
[2018-05-15] MEDS: MINERAL OIL/PETROLATUM OPH OINT 3.5 GM TUBE RIGHT EYE SCH (21:19)
[2018-05-16] MEDS: HEPARIN 5,000 UNIT/1 ML VIAL SUBCUT SCH ×2 (03:29→12:55)
[2018-05-16] MEDS: ALBUTEROL/IPRATROPIUM 3 ML NEB RESP TX SCH ×2 (07:48→14:39)
[2018-05-16] MEDS ORDERED: FUROSEMIDE 40 MG TABLET PO SCH (09:00)
[2018-05-16] MEDS: acetaZOLAMIDE 250 MG TABLET PO SCH (10:13)
[2018-05-16] MEDS: SOTALOL 80 MG TABLET PO SCH (10:14)
[2018-05-16] MEDS: DUTASTERIDE 0.5 MG CAPSULE PO SCH (10:14)
[2018-05-16] MEDS: MAGNESIUM OXIDE 400 MG TABLET PO SCH (10:14)
[2018-05-16] MEDS: SERTRALINE 50 MG TABLET PO SCH (10:14)
[2018-05-16] MEDS: TAMSULOSIN 0.4 MG CAPSULE PO SCH (10:15)
[2018-05-16] MEDS: FERROUS SULFATE 325 MG TABLET PO SCH ×2 (10:15→13:03)
[2018-05-16] MEDS: FUROSEMIDE 40 MG TABLET PO SCH (10:15)
[2018-05-16] MEDS: DOXYCYCLINE HYCLATE 100 MG CAPSULE PO SCH (10:15)
[2018-05-16] MEDS: FOLIC ACID 1 MG TABLET PO SCH (10:15)
[2018-05-16] MEDS: FLUDROCORTISONE 0.1 MG TABLET PO SCH (10:15)
[2018-05-16] MEDS: DOCUSATE SODIUM 100 MG CAPSULE PO SCH (10:16)
[2018-05-16] MEDS: BENZONATATE 100 MG CAPSULE PO SCH (10:16)
[2018-05-16] MEDS: ASPIRIN EC 81 MG TABLET PO SCH (10:16)
[2018-05-16] MEDS: POTASSIUM CHLORIDE 10 MEQ TABLET PO SCH (10:17)
[2018-05-16] MEDS: PANTOPRAZOLE 40 MG TABLET PO SCH (10:17)
[2018-05-16] MEDS: CYANOCOBALAMIN 500 MCG TABLET PO SCH (10:17)
[2018-05-16] MEDS: BUDESONIDE/FORMOTEROL 160-4.5 INHALER 6 GM INH SCH (10:23)
[2018-05-16] MEDS: SKIN HEALING OINT (AQUAPHOR) 50 GM TUBE TOP SCH (10:23)
[2018-05-16] MEDS: POLYVINYL ALCOHOL 1.4% OPH SOLN 15 ML BOTTLE BOTH EYES SCH (10:23)
[2018-05-16 13:00] VITALS: BP 95/65
== END 2018-05-16 14:58 | DRG 115 ==
LOC: N.OR 08:16 → N.SDSINP 08:32 → N.4E 13:48
PROVIDERS: ADMIT Specialist; ATTEND Specialist